=== PATIENT | female | born 1990 | race Caucasian/White ===

== ENCOUNTER 2016-10-17 17:19 | Inpatient (IN) | payer BC ==
[2016-10-17] MEDS ORDERED: ACETAMINOPHEN TAB 500 MG TAB PO STA (19:03)
[2016-10-17] MEDS ORDERED: SODIUM CHLORIDE 0.9% 1,000 ML IV STA (19:03)
[2016-10-17 19:26] LABS: Basophils % (A) 0 %; CH 25.5; CHCM 32.4; Eosinophils # (A) 0.1 k/uL (0-0.7); Eosinophils % (A) 1 %; HCT 36.5 % (34.0-46.0); HDW 2.83; HGB 11.8 gm/dL (11.4-16.0); Luc # (Auto) 0.14; Luc % (Auto) 2; Lymphocytes # (A) 0.8 k/uL (1.0-4.8); Lymphocytes % (A) 9 %; MCH 25.6 pg (25.0-35.0); MCHC 32.4 g/dL (31.0-37.0); MCV 78.8 fL (80.0-100.0); Monocytes # (A) 0.3 k/uL (0-1.0); Monocytes % (A) 3 %; Neutrophils # (A) 7.5 k/uL (1.3-7.7); Neutrophils % (A) 85 %; RBC 4.63 m/uL (3.80-5.40); RDW 14.4 % (11.5-15.5); WBC 8.8 k/uL (3.8-10.6); WBC (Perox) 9.45
--- NOTE | 2016-10-17 19:29 | ED ---
General Adult HPI - General Chief complaint: Fever Stated complaint: FEVER, COUGH, SORETHROAT, WHEEZING, DIZZINESS Time Seen by Provider: 10/17/16 18:44 Source: patient, family, RN notes reviewed Mode of arrival: ambulatory - History of Present Illness Initial comments: Chief complaint and history of presenttwice 6-year-old female here with her . The patient reports to feeling well for several days. Has a fever today of 101.5. Recently was on a Z-Ky for sinus congestion and infection. The patient is complaining of aches and pains. She had nausea vomiting and diarrhea 1 week ago. States today she feels extremely dry. - Related Data Home Medications Medication Instructions Recorded Confirmed Azithromycin [Zithromax Z-pack] See Taper PO DAILY 10/17/16 10/17/16 Blisovi Fe 1.5-30 1 tab PO DAILY 10/17/16 10/17/16 Ibuprofen [Advil] 200 mg PO Q8HR PRN 10/17/16 10/17/16 guaiFENesin/CODEINE PHOSPHATE 5 - 10 ml PO Q6H PRN 10/17/16 10/17/16 [Cheratussin AC Syrup] Allergies Allergy/AdvReac Type Severity Reaction Status Date / Time No Known Allergies Allergy Verified 10/17/16 19:05 Review of Systems ROS Statement: Those systems with pertinent positive or pertinent negative responses have been documented in the HPI. Review of systems. Mild headache no visual acuity changes sore throat from vomiting and coughing. States she's thirsty and feels dry. No nausea vomiting today but she feels nauseated. No back pain. Past medical problems hypertension with . . Family history grandmother had non-Hodgkin's lymphoma. The patient denies any ALLERGIES nonsmoker drink alcohol rarely socially. ROS Other: All systems not noted in ROS Statement are negative. Past Medical History Past Medical History: Hypertension Additional Past Medical History / Comment(s): Gestational hypertension History of Any Multi-Drug Resistant Organisms: None Reported Past Surgical History: Section Past Anesthesia/Blood Transfusion Reactions: No Reported Reaction Past Psychological History: No Psychological Hx Reported Smoking Status: Former smoker Past Alcohol Use History: Occasional Past Drug Use History: None Reported General Exam - General Exam Comments Initial Comments: General: The patient is awake and alert, complaining of some aches pains continued sinus congestion. Think she is dehydrated. Cough. Vital signs temp 101.5 pulse 124 respiratory rate 18 pulse ox 94% room air blood pressure 133/77. Elevated systolic noted 133. Patient is uncomfortable. Mildly obese. And 30 pounds Eye: Pupils are equal, round and reactive to light, extra-ocular movements are intact ; there is normal conjunctiva bilaterally. No signs of icterus. Ears, nose, mouth and throat: There are moist mucous membranes red oropharynx. No exudate. Neck: No anterior cervical lymphadenopathy. No stridor. Able to put chin to chest with minimal discomfort. Cardiovascular: Tachycardic heart rate 124. No murmur, rub or gallop is appreciated. Respiratory: Lungs are clear to auscultation, respirations are non-labored, breath sounds are equal. No wheezes, stridor, rales, or rhonchi. History of cough, not controlled with cough syrup. Gastrointestinal: Soft, non-distended, non-tender abdomen without masses or organomegaly noted. There is no rebound or guarding present. No CVA tenderness. Bowel sounds are unremarkable. Back: There is no tenderness to palpation in the midline. There is no obvious deformity. No rashes noted. Musculoskeletal: Normal ROM, no tenderness, There is no pedal edema. There is no calf tenderness or swelling. Neurological: No neuro deficits Skin: Skin is warm and dry and no rashes or lesions are noted. Course Vital Signs 10/17/16 10/17/16 17:37 19:30 Temperature 101.5 F H Pulse Rate 124 H Respiratory 18 20 Rate Blood Pressure 133/77 O2 Sat by Pulse 94 L Oximetry Medical Decision Making - Medical Decision Making Medical decision making; patient's white count 8.8 hemoglobin 11.8 hematocrit of 36, potassium 3.8 with a BUN of 8 creatinine 0.67 and GFR greater than 60. Glucose 109. AST ALT slightly elevated. Heterophile negative influenza is negative. Chest x-ray was done and reviewed by radiologist his impression is; heart and mediastinum are normal. There is no pneumonic patchiness and consolidation in the left upper lobe. There is also some infiltrate at the left posterior lung base. The right lung is clear. There is no heart failure. There is no hilar masses. Bony thorax is intact. Impression; left upper lobe and to a lesser extent left lower lobe pneumonia. Normal heart. As read by Dr. Cruz The patient be admitted to on-call hospitalist Dr. Putnam. The case is discussed with nurse practitioner Candida rodrigues - Lab Data Result diagrams: 10/17/16 19:17 10/17/16 19:17 Lab Results 10/17/16 10/17/16 10/17/16 Range/Units 19:17 19:17 19:17 WBC 8.8 (3.8-10.6) k/uL RBC 4.63 (3.80-5.40) m/uL Hgb 11.8 (11.4-16.0) gm/dL Hct 36.5 (34.0-46.0) % MCV 78.8 L (80.0-100.0) fL MCH 25.6 (25.0-35.0) pg MCHC 32.4 (31.0-37.0) g/dL RDW 14.4 (11.5-15.5) % Plt Count 191 (150-450) k/uL Neutrophils % 85 % Lymphocytes % 9 % Monocytes % 3 % Eosinophils % 1 % Basophils % 0 % Neutrophils # 7.5 (1.3-7.7) k/uL Lymphocytes # 0.8 L (1.0-4.8) k/uL Monocytes # 0.3 (0-1.0) k/uL Eosinophils # 0.1 (0-0.7) k/uL Basophils # 0.0 (0-0.2) k/uL Sodium 138 (137-145) mmol/L Potassium 3.8 (3.5-5.1) mmol/L Chloride 102 (98-107) mmol/L Carbon Dioxide 23 (22-30) mmol/L Anion Gap 13 mmol/L BUN 8 (7-17) mg/dL Creatinine 0.67 (0.52-1.04) mg/dL Est GFR (MDRD) Af Amer >60 (>60 ml/min/1.73 sqM) Est GFR (MDRD) Non-Af >60 (>60 ml/min/1.73 sqM) Glucose 109 H (74-99) mg/dL Calcium 8.5 (8.4-10.2) mg/dL Total Bilirubin 0.6 (0.2-1.3) mg/dL AST 46 H (14-36) U/L ALT 56 H (9-52) U/L Alkaline Phosphatase 116 (38-126) U/L Total Protein 6.9 (6.3-8.2) g/dL Albumin 3.7 (3.5-5.0) g/dL Heterophile Antibody Negative (Negative) Influenza Type A RNA (Not Detectd) Influenza Type B (PCR) (Not Detectd) 10/17/16 Range/Units 19:17 WBC (3.8-10.6) k/uL RBC (3.80-5.40) m/uL Hgb (11.4-16.0) gm/dL Hct (34.0-46.0) % MCV (80.0-100.0) fL MCH (25.0-35.0) pg MCHC (31.0-37.0) g/dL RDW (11.5-15.5) % Plt Count (150-450) k/uL Neutrophils % % Lymphocytes % % Monocytes % % Eosinophils % % Basophils % % Neutrophils # (1.3-7.7) k/uL Lymphocytes # (1.0-4.8) k/uL Monocytes # (0-1.0) k/uL Eosinophils # (0-0.7) k/uL Basophils # (0-0.2) k/uL Sodium (137-145) mmol/L Potassium (3.5-5.1) mmol/L Chloride (98-107) mmol/L Carbon Dioxide (22-30) mmol/L Anion Gap mmol/L BUN (7-17) mg/dL Creatinine (0.52-1.04) mg/dL Est GFR (MDRD) Af Amer (>60 ml/min/1.73 sqM) Est GFR (MDRD) Non-Af (>60 ml/min/1.73 sqM) Glucose (74-99) mg/dL Calcium (8.4-10.2) mg/dL Total Bilirubin (0.2-1.3) mg/dL AST (14-36) U/L ALT (9-52) U/L Alkaline Phosphatase (38-126) U/L Total Protein (6.3-8.2) g/dL Albumin (3.5-5.0) g/dL Heterophile Antibody (Negative) Influenza Type A RNA Not Detected (Not Detectd) Influenza Type B (PCR) Not Detected (Not Detectd) Disposition Clinical Impression: Community acquired pneumonia Disposition: ADMITTED IP TO THIS HOSP
[2016-10-17 19:38] LABS: ALT 56 U/L (9-52); AST 46 U/L (14-36); Alkaline Phosphatase 116 U/L (38-126); Anion Gap 13 mmol/L; Blood Urea Nitrogen 8 mg/dL (7-17); Calcium 8.5 mg/dL (8.4-10.2); Carbon Dioxide 23 mmol/L (22-30); Chloride 102 mmol/L (98-107); Glucose 109 mg/dL (74-99); Non-African American GFR(MDRD) >60 (>60 ml/min/1.73 sqM); Potassium 3.8 mmol/L (3.5-5.1); Sodium 138 mmol/L (137-145); Total Bilirubin 0.6 mg/dL (0.2-1.3); Total Protein 6.9 g/dL (6.3-8.2)
[2016-10-17] MEDS: SODIUM CHLORIDE 0.9% 1,000 ML IV STA ×2 (19:48→21:46)
--- NOTE | 2016-10-17 20:29 | XR ---
EXAMINATION TYPE: XR chest 2V DATE OF EXAM: 10/17/2016 7:57 PM COMPARISON: NONE HISTORY: Cough and wheezing TECHNIQUE: Frontal and lateral views of the chest are obtained. FINDINGS: Heart and mediastinum are normal. There is pneumonic patchy consolidation in the left uppe r lobe. There is also some infiltrate at the left posterior lung base. The right lung is clear. There is no heart failure. There are no hilar masses. Bony thorax is intact. IMPRESSION: Left upper lobe and to a lesser extent left lower lobe pneumonia. Normal heart.
[2016-10-17] MEDS ORDERED: AZITHROMYCIN 500 MG in SODIUM CHLORIDE 0.9% 250 ML IVPB STA (20:49)
[2016-10-17] MEDS ORDERED: cefTRIAXone 2,000 MG in SODIUM CHLORIDE 0.9% 100 ML IVPB STA (20:49)
[2016-10-17] MEDS ORDERED: NALOXONE 0.4 MG/ML 1 ML VIAL IV PRN (20:53)
[2016-10-17] MEDS ORDERED: IPRATROPIUM-ALBUTEROL 3 ML NEB INHALATION STA (20:56)
[2016-10-17 22:55] VITALS: BMI 48.7
[2016-10-17] MEDS: SODIUM CHLORIDE 0.9% 1,000 ML IV SCH (23:00)
[2016-10-18] MEDS: ACETAMINOPHEN TAB 325 MG TAB PO PRN ×3 (00:02→17:25)
[2016-10-18] MEDS: guaiFENesin-DM 100-10MG/5ML 10 ML CUP PO PRN ×3 (03:55→21:04)
[2016-10-18] MEDS: IPRATROPIUM-ALBUTEROL 3 ML NEB INHALATION PRN ×3 (08:28→23:42)
[2016-10-18] MEDS: PANTOPRAZOLE 40 MG/10 ML VIAL IV SCH (08:52)
[2016-10-18] MEDS: SODIUM CHLORIDE 0.9% 1,000 ML IV SCH ×2 (08:53→21:01)
[2016-10-18] MEDS ORDERED: BLISOVI FE PO SCH (09:00)
[2016-10-18] MEDS: AZITHROMYCIN 500 MG in SODIUM CHLORIDE 0.9% 250 ML IVPB SCH (21:01)
[2016-10-18] MEDS ORDERED: HYDROcodone/APAP 5-325MG 1 EACH TAB PO PRN (21:50)
[2016-10-18] MEDS ORDERED: ALPRAZolam 0.25 MG TAB PO PRN (21:50)
[2016-10-18] MEDS ORDERED: TEMAZEPAM 15 MG CAP PO PRN (22:07)
[2016-10-18] MEDS ORDERED: cefTRIAXone 2,000 MG in SODIUM CHLORIDE 0.9% 100 ML IVPB SCH (22:30)
[2016-10-18] MEDS: HEPARIN SODIUM,PORCINE 5,000 UNIT/ML 1 ML VIAL SQ SCH (23:16)
[2016-10-19] MEDS ORDERED: diphenhydrAMINE 50 MG/ML 1 ML VIAL IVP PRN (01:38)
[2016-10-19] MEDS ORDERED: methylPREDNISolone SOD SUCCI 125 MG/2 ML VIAL IV STA (01:39)
[2016-10-19 03:01] LABS: Appearance,Urine Clear (Clear); Bilirubin,Urine Negative (Negative); Glucose,Urine (UA) Negative (Negative); Ketones,Urine Negative (Negative); Leukocyte Esterase,Urine Negative (Negative); Nitrite,Urine Negative (Negative); PH, Urine 6.5 (5.0-8.0); Protein,Urine Negative (Negative); UA Billing (MACRO vs. MICRO) CHEM; Urobilinogen,Urine <2.0 mg/dL (<2.0)
[2016-10-19 03:24] LABS: Specific Gravity,Urine 1.002 (1.001-1.035)
[2016-10-19 07:30] LABS: Basophils % (A) 0 %; CH 25.2; CHCM 31.8; Eosinophils % (A) 0 %; HCT 32.7 % (34.0-46.0); HDW 2.79; HGB 10.3 gm/dL (11.4-16.0); Hypochromasia Slight; Luc % (Auto) 1; Lymphocytes # (A) 0.5 k/uL (1.0-4.8); Lymphocytes % (A) 8 %; MCHC 31.4 g/dL (31.0-37.0); MCV 79.6 fL (80.0-100.0); Monocytes # (A) 0.1 k/uL (0-1.0); Monocytes % (A) 1 %; Neutrophils # (A) 6.2 k/uL (1.3-7.7); Neutrophils % (A) 90 %; RBC 4.11 m/uL (3.80-5.40); RDW 14.5 % (11.5-15.5); WBC 6.9 k/uL (3.8-10.6); WBC (Perox) 7.16
[2016-10-19 07:41] LABS: ALT 55 U/L (9-52); AST 36 U/L (14-36); Alkaline Phosphatase 95 U/L (38-126); Anion Gap 12 mmol/L; Blood Urea Nitrogen 5 mg/dL (7-17); Calcium 8.8 mg/dL (8.4-10.2); Carbon Dioxide 24 mmol/L (22-30); Chloride 106 mmol/L (98-107); Glucose 129 mg/dL (74-99); Non-African American GFR(MDRD) >60 (>60 ml/min/1.73 sqM); Potassium 4.3 mmol/L (3.5-5.1); Sodium 142 mmol/L (137-145); Total Bilirubin 0.3 mg/dL (0.2-1.3); Total Protein 6.3 g/dL (6.3-8.2)
[2016-10-19] MEDS ORDERED: SYMBICORT 160-4.5 MCG INHALER INHALATION SCH (08:00)
[2016-10-19] MEDS: HEPARIN SODIUM,PORCINE 5,000 UNIT/ML 1 ML VIAL SQ SCH ×2 (08:38→21:13)
[2016-10-19] MEDS: PANTOPRAZOLE 40 MG/10 ML VIAL IV SCH (08:38)
--- NOTE | 2016-10-19 09:04 | HP ---
DATE OF ADMISSION: 10/17/2016 CHIEF COMPLAINT: Fever, cough, sore throat, wheezing and dizziness. HISTORY OF PRESENT ILLNESS: This 26-year-old woman with past medical history of history of hypertension, history of gestational hypertension, history of nicotine dependence, being followed by Dr. Kirk Loomis in the outpatient setting not feeling well over the past one week. Apparently one of the patient's children had HSV infection, which was treated symptomatically. The patient is complaining of cough and sputum for the last one week and patient also had fever up to 101.5. The patient is taking a Z-pack. Because of the lack of improvement, the patient came to [facility] and was admitted to the hospital for further evaluation and treatment. Chest x-ray showed bilateral pneumonia, left more than the right and patient was admitted to the hospital for further evaluation and treatment. There is no history of rigors, fever, chills, no headache, loss of consciousness or seizures at this time. PAST MEDICAL HISTORY: History of hypertension, gestational hypertension. Medications prior to admission include: 1. Advil 200 mg p.o. q.8 p.r.n. 2. Blisovil 1 tablet p.o. daily. 3. Guaifenesin 5 to 10 mg q.6 p.r.n. 4. Zithromax daily. ALLERGIES: None. FAMILY HISTORY: History of hypertension in the family and SOCIAL HISTORY: Previous history of smoking. No history of current smoking. No alcohol intake. REVIEW OF SYSTEMS: ENT: No diminished hearing or vision. CARDIOVASCULAR: No angina or palpitations. RESPIRATORY: As mentioned earlier. GI: No nausea. : No dysuria. CENTRAL NERVOUS SYSTEM: No numbness or weakness. Allergy/immunology: No asthma or hayfever. MUSCULOSKELETAL: As mentioned earlier. HEMATOLOGY/ONCOLOGY: No history of anemia. ENDOCRINE: No history of diabetes. CONSTITUTIONAL: as mentioned earlier. DERMATOLOGY: Negative. RHEUMATOLOGY: Negative . PSYCHIATRY: As mentioned earlier. PHYSICAL EXAMINATION: The patient is alert and oriented times three. Pulse 99, blood pressure 130/64, respiratory rate 16, temperature 98.3, pulse ox 94% on room air. HEENT: Conjunctivae normal. NECK: No jugular venous distention. CARDIOVASCULAR: S1, S2 muffled. RESPIRATORY: Breath sounds diminished in the bases, bilateral scattered rhonchi and crackles. Respiratory wheezing also heard. ABDOMEN: Soft, obese, nontender. No mass palpable. Legs: No edema. No swelling. CENTRAL NERVOUS SYSTEM: Higher functions as mentioned earlier. Moves all four limbs. No focal deficits. LYMPHATICS: No lymph nodes palpable in the neck, axillae or groin. SKIN: No ulcer, rash or bleeding. LABS: At this time shows: WBC 8.8, hemoglobin 11.8. AST 43, ALT is 56, influenza is negative. Triple antibody is negative. ASSESSMENT: 1. Acute bilateral pneumonia, left more than the right, possibly community acquired, rule out viral pneumonia. 2. Increased AST, ALT. 3. Reactive bronchospasm. 4. Increased random blood sugar. 5. Obesity, body mass index 48.7. 6. History of gestational hypertension. 7. Remote history of nicotine dependence. RECOMMENDATIONS AND DISCUSSION: In this 26-year-old woman who presented with multiple complex medical issues, we will monitor the patient closely. Continue the current medications, continue symptomatic treatment. Optimize bronchodilator treatment. Continue Rocephin, Zithromax, obtain cultures. Otherwise, DVT prophylaxis. Incentive spirometry. Continue symptomatic treatment. Guarded prognosis because of multiple complex medical issues. Further recommendations to follow. Please see orders for further details. MTDD
[2016-10-19] MEDS ORDERED: LEVOFLOXACIN 500MG-D5W PMX 500 MG in DEXTROSE/WATER 1 100ML.BAG IVPB SCH (14:00)
--- NOTE | 2016-10-19 14:19 | P.CNPUL ---
History of Present Illness Consult date: 10/19/16 Reason for consult: dyspnea, cough, pneumonia Chief complaint: Cough shortness of breath and wheezing History of present illness: This is a very pleasant 26-year-old female who apparently sees Dr. Farah as her primary doctor. The patient was recently being treated for sinusitis and bronchitis with some Cheratussin and Z-Ky. She got worse and she came into the emergency room to be evaluated. He was seen by one of the ER doctors and diagnoses having left-sided pneumonia. She was admitted to the hospital. She' s been in the hospital since 6. Feeling much better. Her complaints including chest congestion coughing wheezing. Coughing up some phlegm. Slight temperature elevation. No chills. No nausea vomiting or diarrhea. She is feeling much better. Her past medical history is only positive for childbirth. She does take control pills. Doesn't have any history of any lung problems. Nonsmoker. No ALLERGIES. Review of Systems A 12 point review of system is positive for shortness of breath coughing wheezing and phlegm production under the palmar system. In addition she had chest congestion. The rest of the 12 point review of system is unremarkable. Past Medical History Past Medical History: Hypertension Additional Past Medical History / Comment(s): Gestational hypertension History of Any Multi-Drug Resistant Organisms: None Reported Past Surgical History: Section Past Anesthesia/Blood Transfusion Reactions: No Reported Reaction Past Psychological History: No Psychological Hx Reported Smoking Status: Former smoker Past Alcohol Use History: Occasional Past Drug Use History: None Reported - Past Family History Father Family Medical History: Hypertension Additional Family Medical History / Comment(s): grandmother has nonhodgkins lymphoma Medications and Allergies Home Medications Medication Instructions Recorded Confirmed Type Azithromycin [Zithromax Z-pack] See Taper PO DAILY 10/17/16 10/17/16 History Blisovi Fe 1.5-30 1 tab PO DAILY 10/17/16 10/17/16 History Ibuprofen [Advil] 200 mg PO Q8HR PRN 10/17/16 10/17/16 History guaiFENesin/CODEINE PHOSPHATE 5 - 10 ml PO Q6H PRN 10/17/16 10/17/16 History [Cheratussin AC Syrup] Allergies Allergy/AdvReac Type Severity Reaction Status Date / Time ceftriaxone [From Rocephin] Allergy Mild Rash/Hives Verified 10/19/16 12:50 Physical Exam Osteopathic Statement: *. No significant issues noted on an osteopathic structural exam other than those noted in the History and Physical/Consult. Vitals: Vital Signs Temp Pulse Pulse Resp BP Pulse Ox 10/19/16 07:37 97.2 F L 100 16 152/84 95 10/19/16 01:42 98.6 F 10/19/16 01:00 100.1 F H 138 H 18 139/78 93 L 10/19/16 00:05 99.2 F 140 H 16 171/83 92 L 10/18/16 23:51 92 10/18/16 23:44 92 10/18/16 20:00 98.3 F 107 H 16 141/80 94 L 10/18/16 15:00 98.6 F 99 16 134/64 94 L Intake and Output 10/18/16 10/19/16 10/19/16 22:59 06:59 14:59 Intake Total 1300 480 Balance 1300 480 Intake: Intake, IV Titration 800 Amount Sodium Chloride 0.9% 1, 800 000 ml @ 100 mls/hr IV . Q10H [facility] Rx#:[id number] Oral 500 480 Other: Voiding Method Toilet # Voids 1 No acute distress, oriented 3 HEENT examination is grossly unremarkable. Mucous membranes are moist. No oral lesions. Neck is Supple. Full range of motion. No adenopathy. Cardiovascular examination reveals regular rhythm rate. S1-S2 normal. No S3- S4. No murmur. Lung examination reveals expiratory wheezes rhonchi and some crackles throughout the left lung. The right lung is clear. Abdomen soft bowel sounds are heard. Extremities are intact. Results - Laboratory Findings CBC and BMP: 10/19/16 06:58 10/19/16 06:58 Abnormal lab findings: Abnormal Labs 10/17/16 10/19/16 10/19/16 20:58 02:40 06:58 Hgb 10.3 L Hct 32.7 L MCV 79.6 L Lymphocytes # 0.5 L BUN Glucose Plasma Lactic Acid Corby <0.5 L ALT Albumin Urine Opiates Screen Detected H 10/19/16 06:58 Hgb Hct MCV Lymphocytes # BUN 5 L Glucose 129 H Plasma Lactic Acid Corby ALT 55 H Albumin 3.4 L Urine Opiates Screen - Diagnostic Findings Chest x-ray: image reviewed (Chest x-ray shows mostly left-sided infiltrates more so on the left upper lobe and the left lower lobe.) Assessment and Plan (1) Community acquired pneumonia Status: Acute Plan: Plan The patient's medications will be reviewed. She probably could be discharged home later today or tomorrow. She should complete a course of antibiotics. No additional recommendations are made. The patient should get a pneumonia shot either before discharge once discharged. No additional recommendations are made at this time. Time with Patient: Greater than 30
[2016-10-19] MEDS ORDERED: hydrALAZINE HCL 20 MG/ML 1 ML VIAL IVP PRN (18:54)
[2016-10-19] MEDS: amLODIPine 5 MG TAB PO SCH (20:15)
[2016-10-19] MEDS: AZITHROMYCIN 500 MG in SODIUM CHLORIDE 0.9% 250 ML IVPB SCH (21:13)
[2016-10-20] MEDS: cloNIDine HCL 0.1 MG TAB PO PRN ×2 (00:12→16:51)
[2016-10-20] MEDS: IPRATROPIUM-ALBUTEROL 3 ML NEB INHALATION PRN ×4 (05:23→21:57)
[2016-10-20 07:38] LABS: Basophils % (A) 0 %; CH 25.2; CHCM 31.6; Eosinophils # (A) 0.1 k/uL (0-0.7); Eosinophils % (A) 1 %; HDW 2.88; HGB 10.8 gm/dL (11.4-16.0); Hypochromasia Slight; Luc # (Auto) 0.21; Luc % (Auto) 2; Lymphocytes # (A) 1.6 k/uL (1.0-4.8); Lymphocytes % (A) 16 %; MCH 25.4 pg (25.0-35.0); MCHC 31.7 g/dL (31.0-37.0); MCV 79.9 fL (80.0-100.0); Mean Platelet Volume 8.2; Monocytes # (A) 0.4 k/uL (0-1.0); Monocytes % (A) 4 %; Neutrophils # (A) 7.9 k/uL (1.3-7.7); Neutrophils % (A) 77 %; RBC 4.25 m/uL (3.80-5.40); RDW 14.5 % (11.5-15.5); WBC 10.2 k/uL (3.8-10.6); WBC (Perox) 10.88
[2016-10-20 07:47] LABS: ALT 88 U/L (9-52); AST 57 U/L (14-36); Alkaline Phosphatase 93 U/L (38-126); Anion Gap 15 mmol/L; Blood Urea Nitrogen 10 mg/dL (7-17); Calcium 8.9 mg/dL (8.4-10.2); Carbon Dioxide 24 mmol/L (22-30); Chloride 107 mmol/L (98-107); Glucose 119 mg/dL (74-99); Non-African American GFR(MDRD) >60 (>60 ml/min/1.73 sqM); Potassium 3.2 mmol/L (3.5-5.1); Sodium 146 mmol/L (137-145); Total Bilirubin 0.3 mg/dL (0.2-1.3); Total Protein 6.5 g/dL (6.3-8.2)
--- NOTE | 2016-10-20 08:16 | XR ---
EXAMINATION TYPE: XR chest 2V DATE OF EXAM: 10/20/2016 7:03 AM COMPARISON: Prior chest x-ray 17 October 2016 HISTORY: Pneumonia TECHNIQUE: Frontal and lateral views of the chest are obtained. FINDINGS: Airspace disease again seen at the lingula, likely left lower lobe. No pneumothorax or ple ural effusion evident. No significant interval change. IMPRESSION: Findings compatible with patient's history of pneumonia.
[2016-10-20] MEDS: amLODIPine 5 MG TAB PO SCH (08:45)
[2016-10-20] MEDS: HEPARIN SODIUM,PORCINE 5,000 UNIT/ML 1 ML VIAL SQ SCH ×2 (08:45→21:37)
[2016-10-20] MEDS: PANTOPRAZOLE 40 MG/10 ML VIAL IV SCH (08:45)
--- NOTE | 2016-10-20 13:06 | PN ---
DATE OF SERVICE: 08/19/2017 This 26-year-old woman was admitted with acute bilateral pneumonia, left more than the right, possibly community-acquired or viral pneumonia, is being closely monitored. Patient had reaction to Rocephin yesterday, Dr. Vyas is following the patient closely. Community-acquired pneumonia is considered. No chest pain, no palpitation. No fever. On exam, alert and oriented x3. Pulse is 100, blood pressure 153/84, respirations 16, temperature is 97.8, pulse ox 94% on room air. HEENT: Conjunctivae normal. NECK: No jugular venous distension. CARDIOVASCULAR SYSTEM: S1, S2, muffled. RESPIRATORY: Breath sounds diminished at the bases. A few scattered rhonchi, no crackles. Some expiratory wheezing also present. ABDOMEN: Soft, nontender. EXTREMITIES: Legs no edema, no swelling. NERVOUS SYSTEM: No focal deficits. LABS: WBC is 6.9, hemoglobin is 10.3 and albumin is 3.4. Influenza negative. ASSESSMENT: 1. Acute bilateral pneumonia, possibly community-acquired, left more than the right, with possible viral pneumonia. 2. Increased AST, ALT. 3. Reactive bronchospasm. 4. Increased random blood sugar. 5. Hypertension. 6. Obesity with body mass index of 14.7. 7. History of gestational hypertension. 8. Remote history of nicotine dependence. RECOMMENDATION AND DISCUSSION: In this at 26-year-old woman with multiple complex medical issues, will monitor the patient closely. Empiric antibiotics. Otherwise, I would recommend continue with current medication, continue with symptomatic treatment. Otherwise, follow the cultures. Also recommend p.r.n. medications for blood pressure, hypertension, continue to monitor. Further recommendations to follow.
--- NOTE | 2016-10-20 15:17 | P.PN ---
Subjective This is a very pleasant 26-year-old female who apparently sees Dr. Farah as her primary doctor. The patient was recently being treated for sinusitis and bronchitis with some Cheratussin and Z-Ky. She got worse and she came into the emergency room to be evaluated. He was seen by one of the ER doctors and diagnoses having left-sided pneumonia. She was admitted to the hospital on October 17 for further treatment. Since then the patient was placed on a combination of Levaquin and Zithromax. I am seeing this patient in follow-up. Clinically, the patient showed some initial improvement however following that she seems to somewhat remains stable and she hasn't had any major improvement since yesterday. She is still wheezing and is still short of breath. Today's chest x-ray shows a dense consolidation of the left lower lobe typical of a pneumonia. She remains on the same antibiotic coverage which includes Levaquin and Zithromax. No 70 bronchial asthma. He is a former smoker. Objective - Vital Signs Vital signs: Vital Signs Temp 97.4 F L 10/20/16 14:01 Pulse 104 H 10/20/16 14:01 Resp 18 10/20/16 14:01 BP 172/86 10/20/16 14:01 Pulse Ox 96 10/20/16 14:01 Intake & Output 10/19/16 10/20/16 10/20/16 18:59 06:59 18:59 Intake Total 1640 750 580 Balance 1640 750 580 Intake: Intake, IV Titration 800 100 Amount Levofloxacin 500Mg-D5w 100 Pmx 500 mg In Dextrose/ Water 1 100ml.bag @ 100 mls/hr IVPB Q24H [facility] Rx#: [id number] Sodium Chloride 0.9% 1, 800 000 ml @ 100 mls/hr IV . Q10H [facility] Rx#:[id number] Oral 840 750 480 Other: Voiding Method Toilet Toilet # Voids 1 2 - Exam The patient appeared well nourished and normally developed. Vital signs as documented. Head exam is unremarkable. No scleral icterus or corneal arcus noted. Neck is without jugular venous distension, thyromegaly, or carotid bruits. Carotid upstrokes are brisk bilaterally. Sounds are diminished specially in the left lung base along with some left basilar crackles and prolongation of the expiratory phase of breathing.. Cardiac exam reveals the PMI to be normally sized and situated. Rhythm is regular. First and second heart sounds normal. No murmurs, rubs or gallops. Abdominal exam reveals normal bowel sounds, no masses, no organomegaly and no aortic enlargement. Extremities are nonedematous and both femoral and pedal pulses are normal. - Labs CBC & Chem 7: 10/20/16 07:23 10/20/16 07:23 Labs: Abnormal Lab Results - Last 24 Hours (Table) 10/20/16 10/20/16 Range/Units 07:23 07:23 Hgb 10.8 L (11.4-16.0) gm/dL MCV 79.9 L (80.0-100.0) fL Neutrophils # 7.9 H (1.3-7.7) k/uL Sodium 146 H (137-145) mmol/L Potassium 3.2 L (3.5-5.1) mmol/L Glucose 119 H (74-99) mg/dL AST 57 H (14-36) U/L ALT 88 H (9-52) U/L Albumin 3.4 L (3.5-5.0) g/dL Microbiology - Last 24 Hours (Table) 10/19/16 02:40 Urine Culture - Final Urine,Voided 10/17/16 20:58 Blood Culture - Preliminary Blood No Growth after 48 hours 10/18/16 22:30 Gram Stain - Preliminary Sputum Assessment and Plan Plan: Assessment 1 left lower lobe pneumonia, still on a combination of Zithromax and Levaquin. Sputum Gram stain and culture was sent and showing gram-positive cocci in pairs and gram-negative bacilli and the final cultures and sensitivities are still pending for now. Meanwhile, the patient's chest x-ray from today still showing a stable left lower lobe consolidation 2 Hypertension 3 Obesity Plan Keep the same antibiotic coverage. Add IV Solu Medrol 60 every 6 hours. Repeat chest x-ray with PA and lateral views in a.m. We'll consider broadening the antibiotic coverage and even considering a bronchoscopy if no improvement within the next 24-48 hours.
[2016-10-20] MEDS: LEVOFLOXACIN 500 MG TAB PO SCH (16:51)
[2016-10-20] MEDS: methylPREDNISolone SOD SUCCI 125 MG/2 ML VIAL IV SCH (16:52)
--- NOTE | 2016-10-20 20:18 | P.PN ---
Subjective (Date of service 10/20/2016 Progress note being dictated for Dr. Murcia. Interval history: This a 26-year-old female admitted with left lobe pneumonia, and multiple other medical issues. Maintained on antibiotics, nebulized bronchodilators, IV steroids with slow improvement. Continues to have significant wheezing, productive cough with yellow sputum production. Significant shortness of breath with minimal ambulation. Preliminary Sputum culture reporting few gram-positive cocci in pairs and chains, gram-negative bacilli .chest x-ray reporting no pleural effusions, left lower lobe pneumonia .Positive diet intake with no nausea or vomiting. Denies chest pain, palpitations or increasing shortness of breath. Afebrile, T-max 100.1, normal WBC. Objective - Vital Signs Vital signs: Vital Signs Temp 97.4 F L 10/20/16 14:01 Pulse 96 10/20/16 16:58 Resp 18 10/20/16 16:00 BP 163/95 10/20/16 18:20 Pulse Ox 96 10/20/16 14:01 Intake & Output 10/20/16 10/20/16 10/21/16 06:59 18:59 06:59 Intake Total 750 580 Balance 750 580 Intake: Intake, IV Titration 100 Amount Levofloxacin 500Mg-D5w 100 Pmx 500 mg In Dextrose/ Water 1 100ml.bag @ 100 mls/hr IVPB Q24H [facility] Rx#: [id number] Oral 750 480 Other: Voiding Method Toilet Toilet # Voids 2 - Exam PHYSICAL EXAM: VITAL SIGNS: As above GENERAL: [Sitting up in bed, no acute distress] HEENT: [Pupils equal conjunctiva normal.] NECK: [Supple, no JVD] RESPIRATORY EFFORT:[Normal] LUNGS: [Bilateral bases diminished with left lobe expiratory Wheezing,rhonchi scattered throughout] CARDIOVASCULAR[regular S1 and S2, no edema] GI: [Abdomen soft, nontender, positive bowel sounds.] PSYCH: [Alert and oriented -3, mood and affect normal.] NEURO: No focal deficits, moves all 4 extremities, strength and sensation grossly intact - Labs CBC & Chem 7: 10/20/16 07:23 10/20/16 07:23 Labs: Abnormal Lab Results - Last 24 Hours (Table) 10/20/16 10/20/16 Range/Units 07:23 07:23 Hgb 10.8 L (11.4-16.0) gm/dL MCV 79.9 L (80.0-100.0) fL Neutrophils # 7.9 H (1.3-7.7) k/uL Sodium 146 H (137-145) mmol/L Potassium 3.2 L (3.5-5.1) mmol/L Glucose 119 H (74-99) mg/dL AST 57 H (14-36) U/L ALT 88 H (9-52) U/L Albumin 3.4 L (3.5-5.0) g/dL Microbiology - Last 24 Hours (Table) 10/19/16 02:40 Urine Culture - Final Urine,Voided 10/17/16 20:58 Blood Culture - Preliminary Blood No Growth after 48 hours 10/18/16 22:30 Gram Stain - Preliminary Sputum Assessment and Plan Plan: 1. [Acute Left lower lobe pneumonia, suspect community acquired, preliminary sputum culture reporting few gram-positive cocci in pairs, gram-negative bacilli 2. [Reactive bronchospasms]. 3. [Hypertension]. 4. [Morbid obesity, BMI 48.7]. Plan: Continue on current medication regime, nebulized bronchodilators, antibiotics, steroids, monitoring and symptomatic treatment. Slow improvement with potential bronchoscopy being discussed per pulmonary. Aggressive pulmonary toileting. Further recommendations to follow. The impression and plan of care has been dictated as directed. : I performed a H&P examination of this patient and discussed the same with the dictator. I agree with the dictator's note. Any additional findings/opinions/ etc. will be noted.
[2016-10-20] MEDS: AZITHROMYCIN 500 MG TAB PO SCH (21:37)
[2016-10-21] MEDS: methylPREDNISolone SOD SUCCI 125 MG/2 ML VIAL IV SCH ×5 (00:38→23:54)
--- NOTE | 2016-10-21 07:04 | XR ---
EXAMINATION TYPE: XR chest 2V DATE OF EXAM: 10/21/2016 6:54 AM COMPARISON: 10/20/2016 HISTORY: Follow-up pneumonia FINDINGS: Persistent consolidation in the left upper lobe is stable. Right lung clear. No pneumothorax or pleur al effusion. IMPRESSION: 1. Stable left upper lobe consolidation.
[2016-10-21] MEDS: amLODIPine 5 MG TAB PO SCH (07:52)
[2016-10-21] MEDS: PANTOPRAZOLE 40 MG TABLET PO SCH (07:52)
[2016-10-21] MEDS: HEPARIN SODIUM,PORCINE 5,000 UNIT/ML 1 ML VIAL SQ SCH ×2 (07:52→21:14)
[2016-10-21 08:24] LABS: Basophils # (A) 0.1 k/uL (0-0.2); Basophils % (A) 1 %; CH 25.7; CHCM 32.2; Eosinophils % (A) 0 %; HCT 36.3 % (34.0-46.0); HDW 2.74; HGB 11.4 gm/dL (11.4-16.0); Luc # (Auto) 0.17; Luc % (Auto) 2; Lymphocytes # (A) 1.1 k/uL (1.0-4.8); Lymphocytes % (A) 11 %; MCH 25.1 pg (25.0-35.0); MCHC 31.3 g/dL (31.0-37.0); MCV 80.2 fL (80.0-100.0); Mean Platelet Volume 8.7; Monocytes # (A) 0.2 k/uL (0-1.0); Monocytes % (A) 2 %; Neutrophils # (A) 8.8 k/uL (1.3-7.7); Neutrophils % (A) 85 %; RBC 4.53 m/uL (3.80-5.40); RDW 14.5 % (11.5-15.5); WBC 10.4 k/uL (3.8-10.6); WBC (Perox) 10.97
[2016-10-21] MEDS: IPRATROPIUM-ALBUTEROL 3 ML NEB INHALATION PRN ×4 (08:26→20:29)
[2016-10-21 08:38] LABS: ALT 109 U/L (9-52); AST 49 U/L (14-36); Alkaline Phosphatase 98 U/L (38-126); Anion Gap 15 mmol/L; Blood Urea Nitrogen 11 mg/dL (7-17); Calcium 9.6 mg/dL (8.4-10.2); Carbon Dioxide 23 mmol/L (22-30); Chloride 107 mmol/L (98-107); Glucose 117 mg/dL (74-99); Non-African American GFR(MDRD) >60 (>60 ml/min/1.73 sqM); Potassium 4.5 mmol/L (3.5-5.1); Sodium 145 mmol/L (137-145); Total Bilirubin 0.4 mg/dL (0.2-1.3); Total Protein 6.9 g/dL (6.3-8.2)
--- NOTE | 2016-10-21 10:44 | ECHOF ---
Referral Reason:chf MEASUREMENTS -------- HEIGHT: 175.3 cm WEIGHT: 149.7 kg BP: RVIDd: 2.8 cm (< 3.3) IVSd: 1.3 cm (0.6 - 1.1) LVIDd: 4.6 cm (3.9 - 5.3) LVPWd: 1.6 cm (0.6 - 1.1) IVSs: 1.5 cm LVIDs: 3.4 cm LVPWs: 1.6 cm LA Diam: 3.7 cm (2.7 - 3.8) MV EXCURSION: 26.377 mm (> 18.000) MV EF SLOPE: 106 mm/s (70 - 150) EPSS: 0.7 cm MV E Josr: 0.99 m/s MV DecT: 320 ms MV A Josr: 0.75 m/s MV E/A Ratio: 1.31 FINDINGS -------- Sinus rhythm. This was a technically adequate study. Morbid Obesity There is mild concentric left ventricular hypertrophy. Overall left ventricular systolic function is low-normal with, an EF between 50 - 55 %. The right ventricle is normal in size. There is mild aortic valve sclerosis. There is no evidence of aortic regurgitation. Mild mitral annular calcification present. Mild mitral regurgitation is present. There is no evidence of pulmonary hypertension. The right ventricular systolic pressure, as measured by Doppler, is {RVSP}. There is no pulmonic regurgitation present. The aortic root size is normal. There is no pericardial effusion. CONCLUSIONS -------- 1. There is mild concentric left ventricular hypertrophy. 2. Overall left ventricular systolic function is low-normal with, an EF between 50 - 55 %. 3. There is mild aortic valve sclerosis. 4. Mild mitral annular calcification present. 5. Mild mitral regurgitation is present. 6. There is no evidence of pulmonary hypertension. 7. The right ventricular systolic pressure, as measured by Doppler, is {RVSP}. SUPERVISOR BLASTING: Heather Boykin RDCS
--- NOTE | 2016-10-21 11:18 | P.PN ---
Subjective This is a very pleasant 26-year-old female who apparently sees Dr. Farah as her primary doctor. The patient was recently being treated for sinusitis and bronchitis with some Cheratussin and Z-Ky. She got worse and she came into the emergency room to be evaluated. He was seen by one of the ER doctors and diagnoses having left-sided pneumonia. She was admitted to the hospital on October 17 for further treatment. Since then the patient was placed on a combination of Levaquin and Zithromax. I am seeing this patient in follow-up. Clinically, the patient showed some initial improvement however following that she seems to somewhat remains stable and she hasn't had any major improvement since yesterday. She is still wheezing and is still short of breath. Today's chest x-ray shows a dense consolidation of the left lower lobe typical of a pneumonia. She remains on the same antibiotic coverage which includes Levaquin and Zithromax. No bronchial asthma. He is a former smoker. On 10/21/2016 the patient is being seen in follow-up. Clinically she is showing some signs of improvement. Less bronchus spastic less congested in terms of her cough. She is on room air. She is ambulating. Today's chest x- ray shows some limited improvement in the left lower lobe pulmonary infiltration. No fever. No chills. She is on systemic steroids. She is on bronchodilators [id number]. No side effect IV Solu-Medrol at this point. Objective - Vital Signs Vital signs: Vital Signs Temp 96.8 F L 10/21/16 07:00 Pulse 106 H 10/21/16 08:36 Resp 16 10/21/16 07:00 BP 155/94 10/21/16 07:00 Pulse Ox 93 L 10/21/16 08:28 Intake & Output 10/20/16 10/21/16 10/21/16 18:59 06:59 18:59 Intake Total 580 100 480 Balance 580 100 480 Intake: Intake, IV Titration 100 Amount Levofloxacin 500Mg-D5w 100 Pmx 500 mg In Dextrose/ Water 1 100ml.bag @ 100 mls/hr IVPB Q24H [facility] Rx#: [id number] Oral 480 100 480 Other: Voiding Method Toilet Toilet # Voids 1 - Exam The patient appeared well nourished and normally developed. Vital signs as documented. Head exam is unremarkable. No scleral icterus or corneal arcus noted. Neck is without jugular venous distension, thyromegaly, or carotid bruits. Carotid upstrokes are brisk bilaterally. Sounds are diminished specially in the left lung base along with some left basilar crackles and prolongation of the expiratory phase of breathing.. Cardiac exam reveals the PMI to be normally sized and situated. Rhythm is regular. First and second heart sounds normal. No murmurs, rubs or gallops. Abdominal exam reveals normal bowel sounds, no masses, no organomegaly and no aortic enlargement. Extremities are nonedematous and both femoral and pedal pulses are normal. - Labs CBC & Chem 7: 10/21/16 08:01 10/21/16 07:58 Labs: Abnormal Lab Results - Last 24 Hours (Table) 10/21/16 10/21/16 Range/Units 07:58 08:01 Neutrophils # 8.8 H (1.3-7.7) k/uL Creatinine 0.50 L (0.52-1.04) mg/dL Glucose 117 H (74-99) mg/dL AST 49 H (14-36) U/L ALT 109 H (9-52) U/L Microbiology - Last 24 Hours (Table) 10/18/16 22:30 Gram Stain - Final Sputum Sputum Culture - Final 10/17/16 20:58 Blood Culture - Preliminary Blood No Growth after 72 hours 10/19/16 02:40 Urine Culture - Final Urine,Voided Assessment and Plan Plan: Assessment 1 left lower lobe pneumonia, still on a combination of Zithromax and Levaquin. Sputum Gram stain and culture was sent and showing gram-positive cocci in pairs and gram-negative bacilli and the final cultures and sensitivities are still pending for now. Meanwhile, the patient's chest x-ray from today still showing a stable left lower lobe consolidation On 10/21/2016 the patient is improving clinically. Less bronchospastic and wheezy and there is some limited improvement of the left lower lobe pneumonia. 2 Hypertension 3 Obesity Plan Keep the same antibiotic coverage. Continue the Solu-Medrol. Continue the bronchodilators. Repeat chest x-ray in a.m. We'll likely discharge this patient home in a.m. on a course of Levaquin and a prednisone burst taper if her condition remains stable and there is ongoing improvement in the left lung pneumonia.
[2016-10-21] MEDS: LEVOFLOXACIN 500 MG TAB PO SCH (11:42)
[2016-10-21] MEDS: AZITHROMYCIN 500 MG TAB PO SCH (21:14)
[2016-10-22] MEDS: methylPREDNISolone SOD SUCCI 125 MG/2 ML VIAL IV SCH ×2 (05:09→11:02)
[2016-10-22] MEDS: IPRATROPIUM-ALBUTEROL 3 ML NEB INHALATION PRN ×2 (05:23→09:52)
[2016-10-22 07:11] LABS: Basophils # (A) 0.1 k/uL (0-0.2); Basophils % (A) 0 %; CH 25.5; CHCM 31.9; Eosinophils % (A) 0 %; HCT 36.9 % (34.0-46.0); HDW 2.72; HGB 11.7 gm/dL (11.4-16.0); Hypochromasia Slight; Luc # (Auto) 0.26; Luc % (Auto) 2; Lymphocytes # (A) 1.3 k/uL (1.0-4.8); Lymphocytes % (A) 8 %; MCH 25.3 pg (25.0-35.0); MCHC 31.6 g/dL (31.0-37.0); MCV 80.1 fL (80.0-100.0); Mean Platelet Volume 8.4; Monocytes # (A) 0.4 k/uL (0-1.0); Monocytes % (A) 2 %; Neutrophils # (A) 14.8 k/uL (1.3-7.7); Neutrophils % (A) 88 %; RDW 14.7 % (11.5-15.5); WBC 16.9 k/uL (3.8-10.6); WBC (Perox) 17.15
[2016-10-22 07:28] LABS: ALT 107 U/L (9-52); AST 34 U/L (14-36); Alkaline Phosphatase 100 U/L (38-126); Anion Gap 16 mmol/L; Blood Urea Nitrogen 13 mg/dL (7-17); Calcium 9.6 mg/dL (8.4-10.2); Carbon Dioxide 23 mmol/L (22-30); Chloride 106 mmol/L (98-107); Glucose 133 mg/dL (74-99); Non-African American GFR(MDRD) >60 (>60 ml/min/1.73 sqM); Potassium 4.2 mmol/L (3.5-5.1); Sodium 145 mmol/L (137-145); Total Bilirubin 0.5 mg/dL (0.2-1.3)
[2016-10-22 07:51] VITALS: BP 148/88; TEMP 97.8
--- NOTE | 2016-10-22 07:53 | XR ---
EXAMINATION TYPE: XR chest 2V DATE OF EXAM: 10/22/2016 7:03 AM COMPARISON: 10/21/2016 HISTORY: Pneumonia FINDINGS: Subsegmental infiltrate in the lingular segment left upper lobe and left lower lobe. No pleural effus ion. No pneumothorax. Heart size stable. IMPRESSION: 1. Left-sided infiltrates are stable.
[2016-10-22] MEDS: HEPARIN SODIUM,PORCINE 5,000 UNIT/ML 1 ML VIAL SQ SCH (08:39)
[2016-10-22] MEDS: amLODIPine 5 MG TAB PO SCH (08:39)
[2016-10-22] MEDS: PANTOPRAZOLE 40 MG TABLET PO SCH (08:39)
[2016-10-22 09:02] VITALS: RESP 15
--- NOTE | 2016-10-22 12:15 | P.PN ---
Subjective This is a very pleasant 26-year-old female who apparently sees Dr. Farah as her primary doctor. The patient was recently being treated for sinusitis and bronchitis with some Cheratussin and Z-Ky. She got worse and she came into the emergency room to be evaluated. He was seen by one of the ER doctors and diagnoses having left-sided pneumonia. She was admitted to the hospital on October 17 for further treatment. Since then the patient was placed on a combination of Levaquin and Zithromax. I am seeing this patient in follow-up. Clinically, the patient showed some initial improvement however following that she seems to somewhat remains stable and she hasn't had any major improvement since yesterday. She is still wheezing and is still short of breath. Today's chest x-ray shows a dense consolidation of the left lower lobe typical of a pneumonia. She remains on the same antibiotic coverage which includes Levaquin and Zithromax. No bronchial asthma. He is a former smoker. On 10/21/2016 the patient is being seen in follow-up. Clinically she is showing some signs of improvement. Less bronchus spastic less congested in terms of her cough. She is on room air. She is ambulating. Today's chest x- ray shows some limited improvement in the left lower lobe pulmonary infiltration. No fever. No chills. She is on systemic steroids. She is on bronchodilators [id number]. No side effect IV Solu-Medrol at this point. On 10/22/2016 the patient feels good. She is being seen in follow-up. The chest x-ray showing further improvement in the left lower lobe pulmonary infiltrate. The patient is on a prednisone burst taper. She is afebrile. No hemoptysis. No chest pain. I think she'll be stable for discharge from the pulmonary standpoint. Objective - Vital Signs Vital signs: Vital Signs Temp 97.8 F 10/22/16 07:00 Pulse 100 10/22/16 09:52 Resp 15 10/22/16 08:00 BP 148/88 10/22/16 07:00 Pulse Ox 94 L 10/22/16 07:00 Intake & Output 10/21/16 10/22/16 10/22/16 18:59 06:59 18:59 Intake Total 1200 200 Balance 1200 200 Intake: Oral 1200 200 Other: Voiding Method Toilet Toilet # Voids 3 2 - Exam The patient appeared well nourished and normally developed. Vital signs as documented. Head exam is unremarkable. No scleral icterus or corneal arcus noted. Neck is without jugular venous distension, thyromegaly, or carotid bruits. Carotid upstrokes are brisk bilaterally. Sounds are diminished specially in the left lung base along with some left basilar crackles and prolongation of the expiratory phase of breathing.. Cardiac exam reveals the PMI to be normally sized and situated. Rhythm is regular. First and second heart sounds normal. No murmurs, rubs or gallops. Abdominal exam reveals normal bowel sounds, no masses, no organomegaly and no aortic enlargement. Extremities are nonedematous and both femoral and pedal pulses are normal. - Labs CBC & Chem 7: 10/22/16 06:45 10/22/16 06:45 Labs: Abnormal Lab Results - Last 24 Hours (Table) 10/22/16 10/22/16 Range/Units 06:45 06:45 WBC 16.9 H (3.8-10.6) k/uL Neutrophils # 14.8 H (1.3-7.7) k/uL Glucose 133 H (74-99) mg/dL ALT 107 H (9-52) U/L Microbiology - Last 24 Hours (Table) 10/17/16 20:58 Blood Culture - Preliminary Blood No Growth after 96 hours 10/18/16 22:30 Gram Stain - Final Sputum Sputum Culture - Final Assessment and Plan Plan: Assessment 1 left lower lobe pneumonia, still on a combination of Zithromax and Levaquin. Sputum Gram stain and culture was sent and showing gram-positive cocci in pairs and gram-negative bacilli and the final cultures and sensitivities are still pending for now. Meanwhile, the patient's chest x-ray from today still showing a stable left lower lobe consolidation On 10/21/2016 the patient is improving clinically. Less bronchospastic and wheezy and there is some limited improvement of the left lower lobe pneumonia. On 10/22/2016, the patient's chest x-ray shows improvement in the left lower lobe pulmonary infiltrate. I think she is good for discharge from pulmonary standpoint. 2 Hypertension 3 Obesity Plan We'll discharge this patient home on a course of Levaquin 750 to complete a 7 day course. Prednisone burst taper. Follow-up in office in 2-3 weeks time for a follow-up chest x-ray.
[2016-10-22 12:29] VITALS: PULSE 104
--- NOTE | 2016-10-22 16:40 | P.PN ---
Subjective (Date of service 10/21/2016 Progress note being dictated for Dr. Murcia. Interval history: This a 26-year-old female admitted with left lobe pneumonia, and multiple other medical issues. Maintained on antibiotics, nebulized bronchodilators, IV steroids with continued improvement. Chest x-ray reporting stable left upper lobe consolidation. Wheezing and cough improving. Less congestion. Ambulating with less shortness of breath upon exertion. Denies chest pain, palpitations or increasing shortness of breath. Afebrile, normal WBC. Objective - Vital Signs Vital signs: Vital Signs Temp 97.9 F 10/21/16 15:54 Pulse 96 10/21/16 16:51 Resp 16 10/21/16 15:54 BP 145/78 10/21/16 15:54 Pulse Ox 93 L 10/21/16 15:54 Intake & Output 10/20/16 10/21/16 10/21/16 18:59 06:59 18:59 Intake Total 580 100 960 Balance 580 100 960 Intake: Intake, IV Titration 100 Amount Levofloxacin 500Mg-D5w 100 Pmx 500 mg In Dextrose/ Water 1 100ml.bag @ 100 mls/hr IVPB Q24H [facility] Rx#: [id number] Oral 480 100 960 Other: Voiding Method Toilet Toilet # Voids 1 3 - Exam PHYSICAL EXAM: VITAL SIGNS: As above GENERAL: [Sitting up in bed, no acute distress] HEENT: [Pupils equal conjunctiva normal.] NECK: [Supple, no JVD] RESPIRATORY EFFORT:[Normal] LUNGS: [Bilateral bases diminished with left lobe expiratory Wheezing improving , fine Left basilar crackles CARDIOVASCULAR[regular S1 and S2, no edema] GI: [Abdomen soft, nontender, positive bowel sounds.] PSYCH: [Alert and oriented -3, mood and affect normal.] NEURO: No focal deficits, moves all 4 extremities, strength and sensation grossly intact - Labs CBC & Chem 7: 10/22/16 06:45 10/22/16 06:45 Labs: Abnormal Lab Results - Last 24 Hours (Table) 10/21/16 10/21/16 Range/Units 07:58 08:01 Neutrophils # 8.8 H (1.3-7.7) k/uL Creatinine 0.50 L (0.52-1.04) mg/dL Glucose 117 H (74-99) mg/dL AST 49 H (14-36) U/L ALT 109 H (9-52) U/L Microbiology - Last 24 Hours (Table) 10/18/16 22:30 Gram Stain - Final Sputum Sputum Culture - Final 10/17/16 20:58 Blood Culture - Preliminary Blood No Growth after 72 hours 10/19/16 02:40 Urine Culture - Final Urine,Voided Assessment and Plan Plan: 1. [Acute Left lower lobe pneumonia, suspect community acquired, sputum culture reporting few gram-positive cocci in pairs, gram-negative bacilli 2. [Reactive bronchospasms]. 3. [Hypertension]. 4. [Morbid obesity, BMI 48.7]. Plan: Continue on current medication regime, nebulized bronchodilators, antibiotics, steroids, monitoring and symptomatic treatment. Aggressive pulmonary toileting. Increase ambulation as tolerated. Repeat chest x-ray in a.m. Discharge planning in progress for tomorrow pending pulmonary clearance. Further recommendations to follow. The impression and plan of care has been dictated as directed. : I performed a H&P examination of this patient and discussed the same with the dictator. I agree with the dictator's note. Any additional findings/opinions/ etc. will be noted.
--- NOTE | 2016-10-22 16:45 | P.DS ---
Providers Date of admission: 10/17/16 20:53 Expected date of discharge: 10/22/16 Attending physician: MD Dr. Divina Nava. Consults: 10/18/16 14:44 Consult Physician Routine Consulting Provider: Demar Vyas Consult Reason/Comments: pneumonia Do you want consulting provider notified?: Yes Dr. Muñiz, Pulmonary Primary care physician: Kirk Loomis [place] [facility] Course: Final diagnoses: . [Acute Left lower lobe pneumonia, suspect community acquired, sputum culture reporting few gram-positive cocci in pairs, gram-negative bacilli 2. [Reactive bronchospasms, improved]. 3. [Hypertension]. 4. [Morbid obesity, BMI 48.7]. Hospital course:This a 26-year-old female admitted with left lobe pneumonia, and multiple other medical issues. Maintained on antibiotics, nebulized bronchodilators, IV steroids with significant improvement. Follow-up Chest x- rays reporting stable left upper lobe infiltrates. Cleared by pulmonary for discharge. Patient is being discharged home in a stable condition with guarded prognosis. Patient Condition at Discharge: Stable Plan - Discharge Summary New Discharge Prescriptions: Ipratropium/Albuterol Sulfate [Combivent Respimat Inhaler] 1 puff INHALATION QID #1 inhaler Levofloxacin [Levaquin] 750 mg PO DAILY #5 tab predniSONE 10 mg PO DIRECTED #30 tab Discharge Medication List [place] Fe 1.5-30 1 tab PO DAILY 10/17/16 [History] Ipratropium/Albuterol Sulfate [Combivent Respimat Inhaler] 1 puff INHALATION QID #1 inhaler 10/22/16 [Rx] Levofloxacin [Levaquin] 750 mg PO DAILY #5 tab 10/22/16 [Rx] guaiFENesin-DM 100-10MG/5ML [Robitussin DM] 5 ml PO Q6H PRN #0 cup 10/22/16 [Rx] predniSONE 10 mg PO DIRECTED #30 tab 10/22/16 [Rx] Follow up Appointment(s)/Referral(s): Kirk Loomis MD [Primary Care Provider] - 10/28/16 11:00 am Ena Muñiz MD [STAFF PHYSICIAN] - 11/19/16 1:30 pm Ambulatory/Diagnostic Orders: Complete Blood Count w/diff [LAB.AMB] Time Frame: 3 Days, Location: Determined By Patient Activity/Diet/Wound Care/Special Instructions: Off work until you follow up with PCP Discharge Disposition: HOME SELF-CARE
== END 2016-10-22 14:50 | disposition home or self-care (01) | DRG 194 ==
LOC: EC 17:19 → 3SUR 20:53
PROVIDERS: ADMIT Internal Medicine; ATTEND Internal Medicine
DX: J18.9 Pneumonia, unspecified organism (principal); E66.01 Morbid (severe) obesity due to excess calories; T36.1X5A Adverse effect of cephalosporins and other beta-lactam antibiotics, initial encounter; E86.0 Dehydration; J98.01 Acute bronchospasm; Z87.891 Personal history of nicotine dependence; Z68.42 Body mass index [BMI] 45.0-49.9, adult; Z82.49 Family history of ischemic heart disease and other diseases of the circulatory system
CPT/HCPCS: 36415; 71020; 80053; 80306; 81003; 83605; 83880; 85025; 86308; 87040; 87070; 87086; 87205; 87502; 93306; 94640; 94760; 96361; 96365; 99284

== ENCOUNTER 2017-09-04 01:39 | Emergency (ER) | payer BC ==
[2017-09-04] MEDS ORDERED: SODIUM CHLORIDE 0.9% 1,000 ML IV ONE (02:07)
[2017-09-04] MEDS ORDERED: METOCLOPRAMIDE 5 MG/ML 2 ML VIAL IVP STA (02:07)
[2017-09-04] MEDS ORDERED: diphenhydrAMINE 50 MG/ML 1 ML VIAL IVP STA (02:07)
[2017-09-04] MEDS ORDERED: ACETAMINOPHEN TAB 500 MG TAB PO STA (02:07)
[2017-09-04] MEDS ORDERED: SODIUM CHLORIDE 0.9% 1,000 ML IV SCH (02:15)
[2017-09-04 02:49] LABS: Anisocytosis Slight; Basophils % (A) 0 %; CH 27.1; CHCM 33.2; Eosinophils # (A) 0.1 k/uL (0-0.7); Eosinophils % (A) 1 %; HCT 35.4 % (34.0-46.0); HDW 2.96; HGB 11.3 gm/dL (11.4-16.0); Luc % (Auto) 1; Lymphocytes # (A) 1.2 k/uL (1.0-4.8); Lymphocytes % (A) 12 %; MCH 26.2 pg (25.0-35.0); MCHC 31.9 g/dL (31.0-37.0); MCV 82.1 fL (80.0-100.0); Mean Platelet Volume 8.6; Monocytes # (A) 0.4 k/uL (0-1.0); Monocytes % (A) 5 %; Neutrophils # (A) 7.9 k/uL (1.3-7.7); Neutrophils % (A) 82 %; RBC 4.31 m/uL (3.80-5.40); WBC 9.6 k/uL (3.8-10.6); WBC (Perox) 10.34
[2017-09-04 02:51] LABS: Appearance,Urine Clear (Clear); Bacteria,Urine Occasional /hpf; Bilirubin,Urine Negative (Negative); Glucose,Urine (UA) Negative (Negative); Ketones,Urine 1+ (Negative); Leukocyte Esterase,Urine Small (Negative); Nitrite,Urine Negative (Negative); PH, Urine 6.5 (5.0-8.0); Particle Count 3376; Protein,Urine Negative (Negative); RBC,Urine <1 /hpf (0-5); Specific Gravity,Urine 1.007 (1.001-1.035); Squamous Epithelial Cell,Urine 3 /hpf (0-4); UA Billing (MACRO vs. MICRO) MICRO; Urobilinogen,Urine <2.0 mg/dL (<2.0); WBC,Urine 2 /hpf (0-5)
[2017-09-04 02:57] LABS: ALT 29 U/L (9-52); AST 16 U/L (14-36); Alkaline Phosphatase 74 U/L (38-126); Amylase 66 U/L (30-110); Anion Gap 9 mmol/L; Blood Urea Nitrogen 4 mg/dL (7-17); Calcium 8.5 mg/dL (8.4-10.2); Carbon Dioxide 20 mmol/L (22-30); Chloride 107 mmol/L (98-107); Glucose 95 mg/dL (74-99); Non-African American GFR(MDRD) >60 (>60 ml/min/1.73 sqM); Potassium 3.4 mmol/L (3.5-5.1); Sodium 136 mmol/L (137-145); Total Bilirubin 0.3 mg/dL (0.2-1.3); Total Protein 5.7 g/dL (6.3-8.2)
--- NOTE | 2017-09-04 03:05 | ED ---
Abdominal Pain HPI - General Chief Complaint: Abdominal Pain Stated Complaint: Abdominal Pain-Cleared from Mother Baby 30wks Preg Time Seen by Provider: 09/04/17 01:55 Source: patient, RN notes reviewed, old records reviewed Mode of arrival: ambulatory Limitations: no limitations - History of Present Illness Initial Comments: 27-year-old female presents emergency Department chief complaint of bilateral abdominal pain for the past 2 days. Patient reports that she was having some vomiting episodes and diarrhea on Thursday. She reports that the symptoms continued to occur. Patient denies any recent fever or chills. She is currently 30 weeks . Was sent up to the mother-baby unit, and was cleared. Patient states that she has had dark urine over the past few days. Denies any back pain. She reports that the abdominal pain only occurs when she sits up and forward and standing. Denies any other pain. - Related Data Home Medications Medication Instructions Recorded Confirmed Aspirin 81 mg PO DAILY 09/04/17 09/04/17 Pnv,Calcium 72/Iron/Folic Acid 1 tab PO DAILY 09/04/17 09/04/17 [ Plus Tablet] Previous Rx's Medication Instructions Recorded Metoclopramide [Reglan] 5 mg PO ACHS #10 tab 09/04/17 Allergies Allergy/AdvReac Type Severity Reaction Status Date / Time ceftriaxone [From Rocephin] Allergy Mild Rash/Hives Verified 09/04/17 00:35 Review of Systems ROS Statement: Those systems with pertinent positive or pertinent negative responses have been documented in the HPI. ROS Other: All systems not noted in ROS Statement are negative. Past Medical History Past Medical History: Hypertension Additional Past Medical History / Comment(s): Gestational hypertension History of Any Multi-Drug Resistant Organisms: None Reported Past Surgical History: Section Past Anesthesia/Blood Transfusion Reactions: No Reported Reaction Past Psychological History: No Psychological Hx Reported Smoking Status: Former smoker Past Alcohol Use History: Occasional Past Drug Use History: None Reported - Past Family History Father Family Medical History: Hypertension Additional Family Medical History / Comment(s): grandmother has nonhodgkins lymphoma General Exam - General Exam Comments Initial Comments: 27-year-old female. No distress. Patient is 30 weeks . Limitations: no limitations General appearance: alert, in no apparent distress Head exam: Present: atraumatic, normocephalic, normal inspection Eye exam: Present: normal appearance, PERRL, EOMI. Absent: scleral icterus, conjunctival injection, periorbital swelling ENT exam: Present: normal exam, mucous membranes moist Neck exam: Present: normal inspection. Absent: tenderness, meningismus, lymphadenopathy Respiratory exam: Present: normal lung sounds bilaterally. Absent: respiratory distress, wheezes, rales, rhonchi, stridor Cardiovascular Exam: Present: regular rate, normal rhythm, normal heart sounds. Absent: systolic murmur, diastolic murmur, rubs, gallop, clicks GI/Abdominal exam: Present: soft, normal bowel sounds. Absent: distended, tenderness, guarding, rebound, rigid Extremities exam: Present: normal inspection, full ROM, normal capillary refill. Absent: tenderness, pedal edema, joint swelling, calf tenderness Back exam: Present: normal inspection Neurological exam: Present: alert, oriented X3, CN II-XII intact Psychiatric exam: Present: normal affect, normal mood Skin exam: Present: warm, dry, intact, normal color. Absent: rash Course Vital Signs 09/04/17 09/04/17 09/04/17 01:44 03:08 04:09 Temperature 96.9 F L 97.9 F Pulse Rate 97 100 97 Respiratory 18 18 16 Rate Blood Pressure 142/69 140/72 149/71 O2 Sat by Pulse 96 99 100 Oximetry Medical Decision Making - Medical Decision Making 27-year-old female that is 30 weeks presents with my Kirk Dom will be whenever she standing. I reviewed with them on the limits. Discussed that is likely she's been dehydrated. She has had multiple episodes of vomiting earlier in the week as well as some diarrhea. I said her pain seems to be musculoskeletal relatedAs it is worse with movement. Positive [place] side. Again this could be related to the possible round ligament pain. Discussed that she needs to follow up with her primary care provider and OB/ [facility].She was sent upstairs and cleared by mother baby and then was brought out to emergency. - Lab Data Result diagrams: 09/04/17 02:36 09/04/17 02:36 Lab Results 09/04/17 09/04/17 09/04/17 Range/Units 02:36 02:36 02:36 WBC 9.6 (3.8-10.6) k/uL RBC 4.31 (3.80-5.40) m/uL Hgb 11.3 L (11.4-16.0) gm/dL Hct 35.4 (34.0-46.0) % MCV 82.1 (80.0-100.0) fL MCH 26.2 (25.0-35.0) pg MCHC 31.9 (31.0-37.0) g/dL RDW 17.0 H (11.5-15.5) % Plt Count 127 L (150-450) k/uL Neutrophils % 82 % Lymphocytes % 12 % Monocytes % 5 % Eosinophils % 1 % Basophils % 0 % Neutrophils # 7.9 H (1.3-7.7) k/uL Lymphocytes # 1.2 (1.0-4.8) k/uL Monocytes # 0.4 (0-1.0) k/uL Eosinophils # 0.1 (0-0.7) k/uL Basophils # 0.0 (0-0.2) k/uL Anisocytosis Slight Sodium 136 L (137-145) mmol/L Potassium 3.4 L (3.5-5.1) mmol/L Chloride 107 (98-107) mmol/L Carbon Dioxide 20 L (22-30) mmol/L Anion Gap 9 mmol/L BUN 4 L (7-17) mg/dL Creatinine 0.40 L (0.52-1.04) mg/dL Est GFR (MDRD) Af Amer >60 (>60 ml/min/1.73 sqM) Est GFR (MDRD) Non-Af >60 (>60 ml/min/1.73 sqM) Glucose 95 (74-99) mg/dL Calcium 8.5 (8.4-10.2) mg/dL Total Bilirubin 0.3 (0.2-1.3) mg/dL AST 16 (14-36) U/L ALT 29 (9-52) U/L Alkaline Phosphatase 74 (38-126) U/L Total Protein 5.7 L (6.3-8.2) g/dL Albumin 3.1 L (3.5-5.0) g/dL Amylase 66 (30-110) U/L Lipase 75 (23-300) U/L Urine Color Yellow Urine Appearance Clear (Clear) Urine pH 6.5 (5.0-8.0) Ur Specific [place] 1.007 (1.001-1.035) Urine Protein Negative (Negative) Urine Glucose (UA) Negative (Negative) Urine Ketones 1+ H (Negative) Urine Blood Negative (Negative) Urine Nitrite Negative (Negative) Urine Bilirubin Negative (Negative) Urine Urobilinogen <2.0 (<2.0) mg/dL Ur Leukocyte Esterase Small H (Negative) Urine RBC <1 (0-5) /hpf Urine WBC 2 (0-5) /hpf Ur Squamous Epith Cells 3 (0-4) /hpf Urine Bacteria Occasional H (None) /hpf Disposition Clinical Impression: Abdominal pain affecting , Nausea/vomiting in Disposition: HOME SELF-CARE Condition: Good Instructions: Abdominal Pain in (ED) Additional Instructions: Patient advised follow-up with primary care provider as well as 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 Remain hydrated. Take nausea medicine as prescribed. Return to emergency department if any alarming signs or symptoms occur. Prescriptions: Metoclopramide [Reglan] 5 mg PO ACHS #10 tab Referrals: Kirk Loomis MD [Primary Care Provider] - 1-2 days Time of Disposition: 03:51
[2017-09-04 04:10] VITALS: BP 149/71; PULSE 97; RESP 16; TEMP 97.9
== END 2017-09-04 04:09 | disposition home or self-care (01) ==
LOC: EC 01:39
DX: O99.89 Other specified diseases and conditions complicating pregnancy, childbirth and the puerperium (principal); R10.9 Unspecified abdominal pain; O21.2 Late vomiting of pregnancy; Z87.891 Personal history of nicotine dependence; Z88.1 Allergy status to other antibiotic agents; Z98.890 Other specified postprocedural states; Z3A.30 30 weeks gestation of pregnancy; Z79.82 Long term (current) use of aspirin; Z79.899 Other long term (current) drug therapy
CPT/HCPCS: 36415; 80053; 82150; 83690; 85025; 81001; 99284; 96374; 96375; 96361 ×2; J1200; J2765; 59025; 99213

== ENCOUNTER 2017-11-04 10:05 | Inpatient (IN) | payer BC ==
[2017-11-02 17:07] VITALS: BMI 53.4
[2017-11-04] MEDS ORDERED: LACTATED RINGERS 1,000 ML IV ONE (10:06)
[2017-11-04] MEDS ORDERED: CITRIC ACID-SODIUM CITRATE 15 ML CUP PO ONE (10:06)
[2017-11-04] MEDS ORDERED: LACTATED RINGERS 1,000 ML IV SCH (10:15)
[2017-11-04 10:46] LABS: Anisocytosis Slight; Basophils % (A) 0 %; Eosinophils # (A) 0.1 k/uL (0-0.7); Eosinophils % (A) 1 %; HCT 38.2 % (34.0-46.0); HGB 12.7 gm/dL (11.4-16.0); Lymphocytes # (A) 3.6 k/uL (1.0-4.8); Lymphocytes % (A) 34 %; MCH 28.1 pg (25.0-35.0); MCHC 33.1 g/dL (31.0-37.0); MCV 84.7 fL (80.0-100.0); Mean Platelet Volume 8.9; Monocytes # (A) 0.4 k/uL (0-1.0); Monocytes % (A) 4 %; Neutrophils # (A) 6.1 k/uL (1.3-7.7); Neutrophils % (A) 59 %; Platelet Count 147 k/uL (150-450); RBC 4.51 m/uL (3.80-5.40); RDW 17.9 % (11.5-15.5); WBC 10.5 k/uL (3.8-10.6)
[2017-11-04] MEDS ORDERED: CLINDAMYCIN 900 MG in DEXTROSE 5% IN WATER 50 ML IVPB STA ×2 (10:59)
[2017-11-04] MEDS ORDERED: MORPHINE SULFATE (PF) 0.3 MG/0.3 ML SYR ONE (11:55)
[2017-11-04] MEDS ORDERED: ONDANSETRON 4 MG/2 ML VIAL ONE (11:55)
[2017-11-04] MEDS ORDERED: fentaNYL (PF) 50 MCG/ML 2 ML AMP ONE (11:55)
[2017-11-04] MEDS ORDERED: OXYTOCIN 10 UNIT/ML 1 ML VIAL ONE (11:55)
[2017-11-04] MEDS ORDERED: KETOROLAC 30 MG/ML 1 ML VIAL ONE (11:55)
--- NOTE | 2017-11-04 12:03 | P.HPOB ---
History of Present Illness H&P Date: 11/04/17 Chief Complaint: IUP at 39-0/7 weeks, history of 2 this is a 27-year-old 2 para 0102 with history of twins. She presents for elective repeat section. She denies contractions at this time. But notes good movement. Blood type is O+, rubella immune, hepatitis B surface antigen negative, group beta strep was negative, HIV negative, RPR nonreactive. Review of Systems Constitutional: Denies fatigue, Denies fever Respiratory: Denies cough, Denies dyspnea Gastrointestinal: Denies constipation, Denies diarrhea Genitourinary: Reports Past Medical History Past Medical History: Hypertension, Pneumonia Additional Past Medical History / Comment(s): Gestational hypertension History of Any Multi-Drug Resistant Organisms: None Reported Past Surgical History: Section Additional Past Surgical History / Comment(s): wisdom teeth Past Anesthesia/Blood Transfusion Reactions: No Reported Reaction, Motion Sickness Additional Past Anesthesia/Blood Transfusion Reaction / Comment(s): no hx blood transfusion Past Psychological History: No Psychological Hx Reported Smoking Status: Former smoker Past Alcohol Use History: None Reported Additional Past Alcohol Use History / Comment(s): quit smoking on and off for approx 10yrs <1ppd Past Drug Use History: None Reported - Past Family History Father Family Medical History: Hypertension Additional Family Medical History / Comment(s): grandmother has nonhodgkins lymphoma Mother Additional Family Medical History / Comment(s): maternal grandmother nonhodgkin' s lymphoma Medications and Allergies Home Medications Medication Instructions Recorded Confirmed Type Pnv,Calcium 72/Iron/Folic Acid 1 tab PO DAILY 09/04/17 11/02/17 History [ Plus Tablet] Allergies Allergy/AdvReac Type Severity Reaction Status Date / Time ceftriaxone [From Rocephin] Allergy Mild flushing Verified 11/02/17 17:00 Exam Osteopathic Statement: *. No significant issues noted on an osteopathic structural exam other than those noted in the History and Physical/Consult. - Vital Signs Vital signs: Vital Signs Temp Pulse Resp BP Pulse Ox 11/04/17 10:35 97.9 F 91 18 162/91 100 Intake and Output 11/03/17 11/04/17 11/04/17 22:59 06:59 14:59 Other: Weight 164.2 kg Patient Weight 11/05/17 06:59 Weight 164.2 kg - OBG Physical Exam Abdomen: gravid Uterus: enlarged Results Result Diagrams: 11/04/17 10:30 Abnormal Lab Results - Last 24 Hours (Table) 11/04/17 Range/Units 10:30 RDW 17.9 H (11.5-15.5) % Plt Count 147 L (150-450) k/uL Assessment and Plan (1) Term Current Visit: Yes Status: Acute Code(s): Z34.80 - ENCOUNTER FOR SUPRVSN OF NORMAL , UNSP TRIMESTER SNOMED Code(s): 45997368 (2) H/O section Narrative/Plan: we'll plan repeat today. Risk reviewed with the patient in the office in detail including but not limited to infection, bleeding, damage to bladder, bowel, injury patient states understanding and wishes to proceed. Current Visit: Yes Status: Acute Code(s): Z98.891 - HISTORY OF UTERINE SCAR FROM PREVIOUS SURGERY SNOMED Code(s): 748869399 Time with Patient: Less than 30
[2017-11-04] MEDS ORDERED: diphenhydrAMINE 50 MG/ML 1 ML VIAL IVP PRN ×2 (13:04)
[2017-11-04] MEDS ORDERED: diphenhydrAMINE 50 MG CAP PO PRN (13:04)
[2017-11-04] MEDS ORDERED: ZOLPIDEM 5 MG TAB PO PRN (13:04)
[2017-11-04] MEDS ORDERED: METOCLOPRAMIDE 5 MG/ML 2 ML VIAL IVP PRN (13:04)
[2017-11-04] MEDS ORDERED: diphenhydrAMINE 25 MG CAP PO PRN (13:04)
[2017-11-04] MEDS ORDERED: ONDANSETRON 4 MG/2 ML VIAL IVP PRN (13:04)
[2017-11-04] MEDS ORDERED: NALOXONE 0.4 MG/ML 1 ML VIAL IV PRN ×2 (13:04→13:59)
[2017-11-04] MEDS ORDERED: IBUPROFEN 600 MG TAB PO PRN (13:04)
[2017-11-04] MEDS ORDERED: SIMETHICONE 80 MG CHEWABLE PO PRN (13:04)
--- NOTE | 2017-11-04 13:04 | P.OP ---
Date of Procedure: 11/04/17 Preoperative Diagnosis: IUP at 39 0, history of 1 desires repeat Postoperative Diagnosis: same Procedure(s) Performed: Repeat section with vacuum assist Anesthesia: spinal Surgeon: Chela Bragg Warehouse Representative #1: Olman Vizcarra Estimated Blood Loss (ml): 600 IV fluids (ml): 1,000 Urine output (ml): 400 Pathology: none sent Condition: stable Disposition: observation Indications for Procedure: History of 1 Operative Findings: Normal uterus and normal-appearing fallopian tubes and ovaries Description of Procedure: The patient was prepped and draped in the usual fashion after spinal anesthesia was administered by Dr. Cote. A Pfannenstiel incision was made and extended of the abdominal cavity without difficulty. The bladder peritoneum was visualized and away from the operating field. A 2 cm incision was made in the transverse plane of the lower uterine segment to enter the uterus at which time clear fluid was noted. The incision was extended in both directions bluntly. The head was encountered within the field and delivered up and through the incision via vaccum assist where the nose and mouth were thoroughly suctioned. Remainder of the was delivered onto the surgical field where the cord was doubly clamped, cut, and the infant was passed for resuscitative measures with weight and Apgars as noted above. A segment of cord was then doubly clamped, cut, and set aside should cord gases become necessary. The placenta was delivered manually, intact, and was grossly normal with a grossly normal three-vessel cord. The uterus was exteriorized and the interior cavity of the uterus swept of any remaining placental and membranous fragments with a laparotomy sponge. The margins of the incision were grasped with Allis clamps and the incision closed in 2 layers. First layer was a running locking layer of 0 vicryl from margin to margin followed by a second layer of imbricating 0 vicryl from margin to margin. Any small points of bleeding were then made hemostatic with the Bovie. Once hemostasis was achieved, the posterior cul-de- sac was suctioned with a guard and the uterine and ovarian findings are as noted above. The uterus was replaced within the abdominal cavity and the gutters swept of any remaining blood fluid or clot. The incision was again reexamined and hemostasis was noted to be excellent. Any small point of bleeding were made hemostatic with the Bovie. Once hemostasis was achieved the parietal peritoneum was loosely reapproximated. The layer of muscles were examined and made hemostatic with the Bovie. Attention was then turned to the fascia which was closed with 2 running stitches of 0 Vicryl proceeding from the lateral margins to the midpoint. The subcutaneous tissues were irrigated, made hemostatic with the Bovie, and reapproximated with a running stitch of 30 plain catgut. The skin was reapproximated with 4-0 vicryl. Estimated blood loss for the case was approximately 600 mL. All sponge instrument and needle counts are correct. There were no complications. The patient tolerated the procedure well and proceeded to the recovery room in stable condition. Both mother and infant are resting comfortably in recovery.
[2017-11-04] MEDS ORDERED: OXYTOCIN 20 UNITS/1000 ML NS 1,000 ML IV SCH (13:15)
[2017-11-04] MEDS ORDERED: ACETAMINOPHEN IV (For NPO) 1,000 MG in EMPTY BAG 1 BAG IVPB ONE (13:15)
[2017-11-04] MEDS: ACETAMINOPHEN IV (For NPO) 1,000 MG in EMPTY BAG 1 BAG IVPB SCH (13:38)
[2017-11-04] MEDS ORDERED: MORPHINE SULFATE 2 MG/ML SYRINGE IVP PRN (13:59)
[2017-11-04] MEDS: LACTATED RINGERS 1,000 ML IV SCH (18:35)
[2017-11-04] MEDS: SENNOSIDES-DOCUSATE SODIUM 1 EACH TAB PO SCH (20:49)
[2017-11-05] MEDS: IBUPROFEN IV 800 MG in SODIUM CHLORIDE 0.9% 250 ML IV SCH ×2 (03:02→08:31)
[2017-11-05] MEDS: LACTATED RINGERS 1,000 ML IV SCH (03:03)
[2017-11-05] MEDS: ACETAMINOPHEN IV (For NPO) 1,000 MG in EMPTY BAG 1 BAG IVPB SCH ×2 (03:04→12:21)
--- NOTE | 2017-11-05 08:24 | P.PN ---
Subjective Progress Note Date: 11/05/17 Principal diagnosis: Postop day 1, repeat Patient is doing well postoperatively. She denies pain. She is ambulating and voiding without difficulty. She states her lochia is mild, and she is bottle feeding. She is tolerating a regular diet without nausea or vomiting Objective - Vital Signs Vital signs: Vital Signs Temp 98.7 F 11/05/17 04:00 Pulse 90 11/05/17 04:00 Resp 15 11/05/17 04:00 BP 124/71 11/05/17 04:00 Pulse Ox 99 11/05/17 03:00 Intake & Output 11/04/17 11/05/17 11/05/17 18:59 06:59 18:59 Intake Total 600 Output Total 150 1450 Balance 450 -1450 Weight 164.2 kg Intake: IV 600 Lactated Ringers 1,000 ml 600 @ 125 mls/hr IV .Q8H JUAN Rx#:[id number] Output: Urine 150 1450 Uretheral (Vasquez) 200 Other: Voiding Method Indwelling Catheter # Voids 2 - Constitutional General appearance: Present: no acute distress - Gastrointestinal General gastrointestinal: Present: normal bowel sounds, soft - Psychiatric Psychiatric: Present: A&O x's 3, appropriate affect - Labs CBC & Chem 7: 11/04/17 10:30 Labs: Abnormal Lab Results - Last 24 Hours (Table) 11/04/17 Range/Units 10:30 RDW 17.9 H (11.5-15.5) % Plt Count 147 L (150-450) k/uL Assessment and Plan (1) Term Current Visit: Yes Status: Acute Code(s): Z34.80 - ENCOUNTER FOR SUPRVSN OF NORMAL , UNSP TRIMESTER SNOMED Code(s): 09113756 (2) H/O section Narrative/Plan: We'll continue routine postoperative care today. Patient will be encouraged to increase ambulation. Current Visit: Yes Status: Acute Code(s): Z98.891 - HISTORY OF UTERINE SCAR FROM PREVIOUS SURGERY SNOMED Code(s): 369852881
[2017-11-05] MEDS: SENNOSIDES-DOCUSATE SODIUM 1 EACH TAB PO SCH ×2 (08:28→21:02)
[2017-11-05 08:32] LABS: Anisocytosis Slight; Basophils % (A) 0 %; Eosinophils # (A) 0.1 k/uL (0-0.7); Eosinophils % (A) 1 %; HCT 37.3 % (34.0-46.0); HGB 12.3 gm/dL (11.4-16.0); Lymphocytes # (A) 3.8 k/uL (1.0-4.8); Lymphocytes % (A) 32 %; MCH 27.6 pg (25.0-35.0); MCHC 32.8 g/dL (31.0-37.0); MCV 84.1 fL (80.0-100.0); Mean Platelet Volume 8.6; Monocytes # (A) 0.4 k/uL (0-1.0); Monocytes % (A) 4 %; Neutrophils # (A) 7.2 k/uL (1.3-7.7); Neutrophils % (A) 62 %; Platelet Count 142 k/uL (150-450); RBC 4.44 m/uL (3.80-5.40); RDW 16.8 % (11.5-15.5); WBC 11.7 k/uL (3.8-10.6)
--- NOTE | 2017-11-05 08:32 | P.PN ---
Progress Note - Text Anesthesia POD 1. Patient is status post section under spinal anesthesia with intra-thecal preservative free morphine 300 g. Minimal pruritus, good post-op analgesia, and no headache or other complications.
[2017-11-05] MEDS: PRENATAL VIT-IRON-FOLIC ACID 1 EACH CAP PO SCH (10:02)
[2017-11-05] MEDS ORDERED: Acetaminophen-Codeine 300-30mg TAB PO PRN ×2 (12:00)
[2017-11-05] MEDS: ACETAMINOPHEN TAB 325 MG TAB PO PRN (21:03)
[2017-11-06] MEDS: LACTATED RINGERS 1,000 ML IV SCH (01:43)
[2017-11-06] MEDS: ACETAMINOPHEN IV (For NPO) 1,000 MG in EMPTY BAG 1 BAG IVPB SCH (01:43)
[2017-11-06] MEDS: ACETAMINOPHEN TAB 325 MG TAB PO PRN (05:11)
[2017-11-06] MEDS: SENNOSIDES-DOCUSATE SODIUM 1 EACH TAB PO SCH (08:20)
[2017-11-06 08:45] VITALS: BP 138/80; PULSE 103; RESP 18; TEMP 97.4
--- NOTE | 2017-11-06 09:36 | P.DS ---
Providers Date of admission: 11/04/17 10:05 Expected date of discharge: 11/06/17 Attending physician: Chela Bragg Primary care physician: Kirk Loomis - Discharge Diagnosis(es) (1) H/O section Current Visit: Yes Status: Acute (2) Term Current Visit: Yes Status: Acute Hospital Course: This is a 27-year-old woman who was admitted on 11/04/2017 for scheduled repeat low transverse section. She underwent an uncomplicated repeat section and was delivered of a liveborn female infants please see the delivery summary and operative report for details. Her postoperative course was unremarkable. By postoperative day #1 she was ambulating and voiding without difficulty and was tolerating a general diet. Her pain was controlled with oral pain medications. She did have some increase in lower extremity edema. Her postoperative labs were stable. By postoperative day #2 she continued to do quite well. Her vital signs were stable. She did have 3+ lower extremity pitting edema with no erythema tenderness or asymmetry. Her incision appeared well healing. She was therefore discharged home with routine instructions for postoperative care and follow-up. Procedures: Repeat low transverse section Patient Condition at Discharge: Good Plan - Discharge Summary Discharge Rx Participant: No New Discharge Prescriptions: New Acetaminophen Tab [Tylenol] 650 mg PO Q4HR PRN tab PRN Reason: Mild Pain Or Fever >= 100.5 No Action Pnv,Calcium 72/Iron/Folic Acid [ Plus Tablet] 1 tab PO DAILY Discharge Medication List Pnv,Calcium 72/Iron/Folic Acid [ Plus Tablet] 1 tab PO DAILY 09/04/17 [ History] Acetaminophen Tab [Tylenol] 650 mg PO Q4HR PRN tab 11/06/17 [Rx] Activity/Diet/Wound Care/Special Instructions: Follow-up in the office 2 weeks postoperatively or sooner with any concerning signs or symptoms including heavy vaginal bleeding, redness or foul drainage from the incision, severe abdominal pain, fever greater than 100.5, redness or swelling of the lower extremities. May use [id number] extra strength Tylenol and/or ibuprofen as needed for pain. Discharge Disposition: HOME SELF-CARE
[2017-11-06] MEDS: PRENATAL VIT-IRON-FOLIC ACID 1 EACH CAP PO SCH (12:02)
== END 2017-11-06 10:30 | disposition home or self-care (01) | DRG 766 ==
LOC: 4FBP 10:05
PROVIDERS: ADMIT Obstetrics & Gynecology Obstetrics; ATTEND Obstetrics & Gynecology Obstetrics
PROC: 10D00Z1 Extraction of Products of Conception, Low, Open Approach (ICD-10-PCS; principal; 2017-11-04 12:00)
DX: O34.211 Maternal care for low transverse scar from previous cesarean delivery (principal); O16.4 Unspecified maternal hypertension, complicating childbirth; O12.04 Gestational edema, complicating childbirth; Z37.0 Single live birth; Z3A.39 39 weeks gestation of pregnancy; Z87.891 Personal history of nicotine dependence; Z88.1 Allergy status to other antibiotic agents
CPT/HCPCS: 85025; 86850; 86900; 86901; 88307; 94760

== ENCOUNTER 2018-03-07 13:13 | Emergency (ER) | payer BC ==
[2018-03-07 13:29] VITALS: BP 183/90; PULSE 84; RESP 18; TEMP 97
--- NOTE | 2018-03-07 13:46 | ED ---
General Adult HPI - General Chief complaint: Skin/Abscess/Foreign Body Stated complaint: Abcess/Leg Time Seen by Provider: 03/07/18 13:35 Source: patient, RN notes reviewed Mode of arrival: ambulatory Limitations: no limitations - History of Present Illness Initial comments: 27-year-old female with no significant past medical history presents for evaluation of pain and swelling in the left posterior thigh. Symptoms have been present for approximately 5 days, there was some mild purulent drainage from the site. Did start as possible ingrown hair or pimple. Patient is not immunosuppressed, she has no history diabetes. She is not on any medication. She denies fever or chills. Denies any other symptoms. - Related Data Previous Rx's Medication Instructions Recorded Sulfamethox-Tmp 800-160Mg [Bactrim 1 tab PO Q12HR #20 tab 03/07/18 DS 800-160 mg] Allergies Allergy/AdvReac Type Severity Reaction Status Date / Time ceftriaxone [From Rocephin] Allergy Mild flushing Verified 03/07/18 13:30 Review of Systems ROS Statement: Those systems with pertinent positive or pertinent negative responses have been documented in the HPI. ROS Other: All systems not noted in ROS Statement are negative. Past Medical History Past Medical History: Hypertension, Pneumonia Additional Past Medical History / Comment(s): Gestational hypertension History of Any Multi-Drug Resistant Organisms: None Reported Past Surgical History: Section Additional Past Surgical History / Comment(s): wisdom teeth Past Anesthesia/Blood Transfusion Reactions: No Reported Reaction, Motion Sickness Additional Past Anesthesia/Blood Transfusion Reaction / Comment(s): no hx blood transfusion Past Psychological History: No Psychological Hx Reported Smoking Status: Former smoker Past Alcohol Use History: None Reported Past Drug Use History: None Reported - Past Family History Father Family Medical History: Hypertension Additional Family Medical History / Comment(s): grandmother has nonhodgkins lymphoma Mother Additional Family Medical History / Comment(s): maternal grandmother nonhodgkin' s lymphoma General Exam Limitations: no limitations General appearance: alert, in no apparent distress Head exam: Present: atraumatic, normocephalic Eye exam: Present: normal appearance, PERRL, EOMI ENT exam: Present: normal exam Neck exam: Present: normal inspection. Absent: tenderness, meningismus Respiratory exam: Present: normal lung sounds bilaterally, respiratory distress Cardiovascular Exam: Present: regular rate, normal rhythm GI/Abdominal exam: Present: soft. Absent: distended, tenderness, guarding Extremities exam: Present: other (Left posterior thigh, mid thigh. Area of cellulitis approximately 4 cm with central opening with dried blood. No purulence. There is no fluctuation or drainable abscess.) Course Vital Signs 03/07/18 13:22 Temperature 97.0 F L Pulse Rate 84 Respiratory 18 Rate Blood Pressure 183/90 O2 Sat by Pulse 97 Oximetry Medical Decision Making - Medical Decision Making 27-year-old female with cellulitis of the left posterior thigh. Patient is otherwise well-appearing. There is no drainable abscess collection at this time. Patient will continue to soak the area. She will be prescribed antibiotics. She will watch for worsening erythema or the development of central abscess. Return to emergency department with worsening or changing symptoms. Disposition Clinical Impression: Cellulitis of left thigh Disposition: HOME SELF-CARE Condition: Good Instructions: Cellulitis (ED) Prescriptions: Sulfamethox-Tmp 800-160Mg [Bactrim DS 800-160 mg] 1 tab PO Q12HR #20 tab Is patient prescribed a controlled substance at d/c from ED?: No Referrals: Kirk Loomis MD [Primary Care Provider] - 1-2 days Time of Disposition: 13:46
== END 2018-03-07 13:56 | disposition home or self-care (01) ==
LOC: EC 13:13
DX: L03.116 Cellulitis of left lower limb (principal); Z88.1 Allergy status to other antibiotic agents; Z87.891 Personal history of nicotine dependence
CPT/HCPCS: 99282

== ENCOUNTER 2018-03-10 17:02 | Emergency (ER) | payer BC ==
[2018-03-10 17:10] VITALS: BP 162/70; PULSE 112; RESP 18; TEMP 98.5
--- NOTE | 2018-03-10 17:28 | ED ---
Skin/Abscess/FB HPI - General Chief complaint: Skin/Abscess/Foreign Body Stated complaint: INFECTION ON LEFT LEG Time Seen by Provider: 03/10/18 17:11 Source: patient, RN notes reviewed, old records reviewed Mode of arrival: ambulatory Limitations: no limitations - History of Present Illness Initial comments: This is a 27-year-old female who presents to the emergency department with chief complaint of infection on her left leg. Patient was seen this past Thursday and diagnosed with cellulitis. She was started on Bactrim. She states that she has been taking Bactrim since Thursday night. She states that she was told to return to the emergency department if an abscess formed or if redness was spreading. Patient states that the redness has not spread, however she has developed an abscess. She states it has been draining a little bit. She denies any fevers or chills. Denies chest pain or shortness of breath, abdominal pain, nausea or vomiting, diarrhea or constipation, dizziness or headache. - Related Data Previous Rx's Medication Instructions Recorded Sulfamethox-Tmp 800-160Mg [Bactrim 1 tab PO Q12HR #20 tab 03/07/18 DS 800-160 mg] Allergies Allergy/AdvReac Type Severity Reaction Status Date / Time ceftriaxone [From Rocephin] Allergy Mild flushing Verified 03/10/18 17:10 Review of Systems ROS Statement: Those systems with pertinent positive or pertinent negative responses have been documented in the HPI. ROS Other: All systems not noted in ROS Statement are negative. Past Medical History Past Medical History: Hypertension, Pneumonia Additional Past Medical History / Comment(s): Gestational hypertension History of Any Multi-Drug Resistant Organisms: None Reported Past Surgical History: Section Additional Past Surgical History / Comment(s): wisdom teeth Past Anesthesia/Blood Transfusion Reactions: No Reported Reaction, Motion Sickness Additional Past Anesthesia/Blood Transfusion Reaction / Comment(s): no hx blood transfusion Past Psychological History: No Psychological Hx Reported Smoking Status: Former smoker Past Alcohol Use History: None Reported Past Drug Use History: None Reported - Past Family History Father Family Medical History: Hypertension Additional Family Medical History / Comment(s): grandmother has nonhodgkins lymphoma Mother Additional Family Medical History / Comment(s): maternal grandmother nonhodgkin' s lymphoma General Exam - General Exam Comments Initial Comments: General: Awake and alert, well-developed; in no apparent distress. Does not appear acutely ill. HEENT: Head atraumatic, normocephalic. Pupils are equal, round and reactive to light. Extraocular movements intact. Oropharynx moist without erythema or exudate. Neck: Supple. Normal ROM. Cardiovascular: Regular rate and rhythm. No murmurs, rubs or gallops. Chest symmetrical. Respiratory: Lungs clear to auscultation bilaterally. No wheezes, rales or rhonchi. Normal respiratory effort with no use of accessory muscles. Musculoskeletal: Normal ROM, no tenderness bilateral upper and lower extremities. Ambulating normally. Skin: Peridot, warm and dry. Left proximal posterior thigh: Circular marking designating area of cellulitis is present. Redness does not appear to have spread beyond this border. Approximately 4 cm in diameter area of erythema and induration with central pustule measuring approximately 1 cm in diameter. Mild active purulent drainage. Neurological: Alert and oriented x3. CN II-XII grossly intact. Speech is fluent and answers are appropriate. No focal neuro deficits. Psychiatric: Normal mood and affect. No overt signs of depression or anxiety noted. Limitations: no limitations Course Vital Signs 03/10/18 17:07 Temperature 98.5 F Pulse Rate 112 H Respiratory 18 Rate Blood Pressure 162/70 O2 Sat by Pulse 99 Oximetry Procedures - Incision & Drainage Consent Obtained: verbal consent Indication: Abscess Site: lower extremity (Posterior proximal left thigh) Size (cm): 1 Anesthetic Used: lidocaine 1% Amount (mLs): 5 I&D Cleaning Method: Alcohol Wipe Scalpel Used: #11 I&D Drainage Obtained: Pus, Blood Culture Obtained?: No Patient Tolerated Procedure: well, no complications Medical Decision Making - Medical Decision Making This is a 27-year-old female, previously diagnosed with cellulitis, who presents to the emergency department with chief complaint of abscess formation. Patient was started on Bactrim for a left posterior thigh cellulitis this past Thursday. Patient has been taking her medication. She states that a central abscess has formed with mild drainage. She denies any spreading of the redness. On physical examination, the marker designating area of cellulitis is present. Redness does not spread beyond this point. There is a central abscess. I&D was performed and patient tolerated well without complication. Recommended continuing monitoring of the area. Return parameters were discussed. Recommended continuing warm compresses and finishing Bactrim in its entirety. Patient's vital signs are stable and she is in no acute distress. She is healthy-appearing. She will be discharged home at this time. She is in agreement with plan and voiced understanding. All questions were answered. Disposition Clinical Impression: Cellulitis and abscess of left lower extremity Disposition: HOME SELF-CARE Condition: Good Instructions: Abscess Incision and Drainage (ED), Abscess (ED) Additional Instructions: Please continue monitoring spreading of redness. Please continue warm compresses and finish entire course of Bactrim as was previously prescribed. Please follow up with primary care provider within 1-2 days. Return to emergency department if symptoms should worsen or any concerns arise. Is patient prescribed a controlled substance at d/c from ED?: No Referrals: Kirk Loomis MD [Primary Care Provider] - 1-2 days Time of Disposition: 17:35
== END 2018-03-10 17:55 | disposition home or self-care (01) ==
LOC: EC 17:02
DX: L02.416 Cutaneous abscess of left lower limb (principal); L03.116 Cellulitis of left lower limb; Z87.891 Personal history of nicotine dependence; Z88.1 Allergy status to other antibiotic agents
CPT/HCPCS: 10060; 99283

== ENCOUNTER 2020-02-01 14:34 | Observation (INO) | payer BC ==
[2020-02-01] MEDS ORDERED: LACTATED RINGERS 1,000 ML IV SCH ×2 (15:30→17:45)
[2020-02-01 15:49] LABS: Basophils % (A) 0 %; Eosinophils # (A) 0.1 k/uL (0-0.7); Eosinophils % (A) 1 %; HCT 34.9 % (34.0-46.0); HGB 11.6 gm/dL (11.4-16.0); Lymphocytes # (A) 1.5 k/uL (1.0-4.8); Lymphocytes % (A) 17 %; MCH 26.6 pg (25.0-35.0); MCHC 33.2 g/dL (31.0-37.0); MCV 80.2 fL (80.0-100.0); Mean Platelet Volume 9.1; Monocytes # (A) 0.4 k/uL (0-1.0); Monocytes % (A) 4 %; Neutrophils # (A) 6.9 k/uL (1.3-7.7); Neutrophils % (A) 77 %; Platelet Count 144 k/uL (150-450); RBC 4.36 m/uL (3.80-5.40); RDW 15.6 % (11.5-15.5)
[2020-02-01 15:54] LABS: Appearance,Urine Cloudy (Clear); Bacteria,Urine Occasional /hpf; Bilirubin,Urine Negative (Negative); Blood,Urine Negative (Negative); Color,Urine Yellow; Glucose,Urine (UA) Negative (Negative); Ketones,Urine Negative (Negative); Leukocyte Esterase,Urine Negative (Negative); Mucus,Urine Rare /hpf; Nitrite,Urine Negative (Negative); Protein,Urine Trace (Negative); RBC,Urine 1 /hpf (0-5); Specific Gravity,Urine 1.022 (1.001-1.035); Squamous Epithelial Cell,Urine 2 /hpf (0-4); Urobilinogen,Urine <2.0 mg/dL (<2.0); WBC,Urine 2 /hpf (0-5)
[2020-02-01 15:58] LABS: ALT 9 U/L (4-34); AST 14 U/L (14-36); African American GFR (CKD) >90 (>60 ml/min/1.73 sqM); Blood Urea Nitrogen 7 mg/dL (7-17); LDH 363 U/L (313-618); Non-African American GFR(CKD) >90 (>60 ml/min/1.73 sqM); Uric Acid 3.7 mg/dL (3.7-7.4)
[2020-02-01 16:04] LABS: Protein/Creatinine Ratio,Urine 0.12
[2020-02-01] MEDS ORDERED: ACETAMINOPHEN IV (For NPO) 1,000 MG in EMPTY BAG 1 BAG IVPB ONE (16:04)
[2020-02-01 16:05] LABS: Creatinine,Urine Random 99.8 mg/dL
[2020-02-01] MEDS ORDERED: ACETAMINOPHEN TAB 325 MG TAB PO PRN (17:32)
[2020-02-01 20:31] VITALS: RESP 16
[2020-02-02 07:01] LABS: Basophils % (A) 0 %; Eosinophils # (A) 0.1 k/uL (0-0.7); Eosinophils % (A) 1 %; HCT 33.4 % (34.0-46.0); Lymphocytes # (A) 1.7 k/uL (1.0-4.8); Lymphocytes % (A) 22 %; MCH 26.7 pg (25.0-35.0); MCHC 32.9 g/dL (31.0-37.0); MCV 81.3 fL (80.0-100.0); Mean Platelet Volume 9.5; Monocytes # (A) 0.3 k/uL (0-1.0); Monocytes % (A) 4 %; Neutrophils # (A) 5.8 k/uL (1.3-7.7); Neutrophils % (A) 72 %; Platelet Count 131 k/uL (150-450); RBC 4.11 m/uL (3.80-5.40); RDW 15.9 % (11.5-15.5); WBC 8.1 k/uL (3.8-10.6)
[2020-02-02 07:04] LABS: ALT 8 U/L (4-34); AST 14 U/L (14-36); African American GFR (CKD) >90 (>60 ml/min/1.73 sqM); Blood Urea Nitrogen 5 mg/dL (7-17); LDH 357 U/L (313-618); Non-African American GFR(CKD) >90 (>60 ml/min/1.73 sqM)
--- NOTE | 2020-02-02 08:41 | P.HPOB ---
History of Present Illness H&P Date: 02/02/20 Chief Complaint: IUP at 32-0/7 weeks, gestational hypertension This is a pleasant 29-year-old 3 para 10/12/2002 at 32-0/7 weeks that presents to labor and delivery with complaints of headache unrelieved by Tylenol at home. Patient states she is noting good movement she denies vaginal bleeding or loss of fluid. She denies contractions. She denies right upper quadrant pain she denies increase in lower remedies swelling. Patient doesn't a history of gestational hypertension in her first and was delivered at 35 weeks with a twin gestation. Patient's second was a single 10 complications no hypertension issues were noted. patient is currently working at [employer] which has caused her increased stress she states she did work on thursday and was very anxious about this. patient is seen this morning and states she is feeling well. she states her headache is now gone. she denies any concerns this morning. blood pressures overnight were very labile in nature, highest being 153/80. NSTs have been reactive since she presented in triage yesterday evening. Review of Systems Constitutional: Denies chills, Denies fatigue, Denies fever Ears, nose, mouth and throat: Denies headache Cardiovascular: Reports leg edema Respiratory: Denies cough, Denies dyspnea Gastrointestinal: Denies constipation, Denies diarrhea, Denies nausea, Denies vomiting Genitourinary: Reports Past Medical History Past Medical History: Hypertension, Pneumonia Additional Past Medical History / Comment(s): Gestational hypertension History of Any Multi-Drug Resistant Organisms: None Reported Past Surgical History: Section Additional Past Surgical History / Comment(s): wisdom teeth Past Anesthesia/Blood Transfusion Reactions: No Reported Reaction, Motion Sickness Additional Past Anesthesia/Blood Transfusion Reaction / Comment(s): no hx blood transfusion Past Psychological History: No Psychological Hx Reported Smoking Status: Never smoker Past Alcohol Use History: None Reported Additional Past Alcohol Use History / Comment(s): quit smoking on and off for approx 10yrs <1ppd Past Drug Use History: None Reported - Past Family History Father Family Medical History: Hypertension Additional Family Medical History / Comment(s): grandmother has nonhodgkins lymphoma Mother Additional Family Medical History / Comment(s): maternal grandmother nonhodgkin's lymphoma Medications and Allergies Home Medications Medication Instructions Recorded Confirmed Type Pnv No.95/Ferrous Fum/Folic AC 1 each PO DAILY 02/01/20 02/01/20 History [ Multivitamin Tablet] Allergies Allergy/AdvReac Type Severity Reaction Status Date / Time ceftriaxone [From Rocephin] Allergy Mild flushing Verified 02/01/20 14:55 Exam Osteopathic Statement: *. No significant issues noted on an osteopathic structural exam other than those noted in the History and Physical/Consult. 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 She is resting comfortably eating her breakfast. Breathing is noted to be nonlabored, heart has regular rate and rhythm. Abdomen is gravid, cervical exam is deferred. heart tones on NST have been reactive and no contractions have been noted. Results Result Diagrams: 02/02/20 05:25 02/02/20 05:25 Abnormal Lab Results - Last 24 Hours (Table) 02/01/20 02/01/20 02/01/20 Range/Units 14:40 15:37 15:37 Hgb (11.4-16.0) gm/dL Hct (34.0-46.0) % RDW 15.6 H (11.5-15.5) % Plt Count 144 L (150-450) k/uL BUN (7-17) mg/dL Creatinine 0.35 L (0.52-1.04) mg/dL Urine Appearance Cloudy H (Clear) Urine Protein Trace H (Negative) Urine Bacteria Occasional H (None) /hpf Urine Mucus Rare H (None) /hpf 02/02/20 02/02/20 Range/Units 05:25 05:25 Hgb 11.0 L (11.4-16.0) gm/dL Hct 33.4 L (34.0-46.0) % RDW 15.9 H (11.5-15.5) % Plt Count 131 L (150-450) k/uL BUN 5 L (7-17) mg/dL Creatinine 0.38 L (0.52-1.04) mg/dL Urine Appearance (Clear) Urine Protein (Negative) Urine Bacteria (None) /hpf Urine Mucus (None) /hpf Assessment and Plan (1) 32 weeks gestation of Current Visit: Yes Status: Acute Code(s): Z3A.32 - 32 WEEKS GESTATION OF SNOMED Code(s): 4324720 (2) Gestational HTN Current Visit: Yes Status: Acute Code(s): O13.9 - GESTATIONAL HTN W/O SIGNIFICANT PROTEINURIA, UNSP TRIMESTER SNOMED Code(s): 047758159 Plan: Patient is currently in the process of completing a 24-hour urine will be done later this evening. I do not suspect that this will be elevated. Patient's repeat preeclampsia labs are normal in nature. Patient is asymptomatic this morning. I do believe increased stress at work has caused her to have her headache, she is now symptom free. We'll plan to complete 24-hour urine if as suspected it is low she can be discharged home with close follow-up in the office. I did discuss diagnosis of gestational hypertension with this patient all questions are answered, do not believe she has preeclampsia at this time. We will monitor closely for increasing symptoms. Preeclampsia symptoms are discussed with patient and all questions are answered at this time.
[2020-02-02] MEDS ORDERED: PRENATAL VIT-IRON-FOLIC ACID 1 EACH CAP PO SCH (09:00)
[2020-02-02] MEDS ORDERED: LABETALOL 100 MG TAB PO SCH (09:00)
[2020-02-02 15:45] LABS: Total Volume 24 Hour,Urine 2750 mls (800-1800)
[2020-02-02 15:57] LABS: Total Protein 24 Hour,Urine 303 mg/24hr (42.0-225.0)
[2020-02-02 16:25] VITALS: BP 115/78; PULSE 86; TEMP 98
== END 2020-02-02 16:54 | disposition home or self-care (01) ==
LOC: FBPOP 14:34 → 4FBP 16:58
PROVIDERS: ADMIT Obstetrics & Gynecology Obstetrics; ATTEND Obstetrics & Gynecology Obstetrics
DX: O13.3 Gestational [pregnancy-induced] hypertension without significant proteinuria, third trimester (principal); Z3A.32 32 weeks gestation of pregnancy; Z80.7 Family history of other malignant neoplasms of lymphoid, hematopoietic and related tissues; Z82.49 Family history of ischemic heart disease and other diseases of the circulatory system
CPT/HCPCS: 59025; 99215; 96361; 96365; 96374; 82570; 84156 ×2; 81050; 82565 ×2; 83615 ×2; 84450 ×2; 84460 ×2; 84520 ×2; 84550 ×2; 85025 ×2; 81001; G0378 ×2; J0131

== ENCOUNTER 2020-02-14 04:44 | Outpatient (CLI) | payer BC ==
[2020-02-14] MEDS ORDERED: diphenhydrAMINE 50 MG CAP PO STA (05:35)
[2020-02-14 05:49] LABS: Appearance,Urine Cloudy (Clear); Bacteria,Urine Moderate /hpf; Bilirubin,Urine Negative (Negative); Blood,Urine Negative (Negative); Color,Urine Light Yellow; Glucose,Urine (UA) Negative (Negative); Ketones,Urine Trace (Negative); Leukocyte Esterase,Urine Negative (Negative); Mucus,Urine Rare /hpf; Nitrite,Urine Negative (Negative); PH, Urine 6.5 (5.0-8.0); Protein,Urine Negative (Negative); RBC,Urine 1 /hpf (0-5); Specific Gravity,Urine 1.007 (1.001-1.035); Squamous Epithelial Cell,Urine 3 /hpf (0-4); Urobilinogen,Urine <2.0 mg/dL (<2.0); WBC,Urine 2 /hpf (0-5)
[2020-02-14 06:02] LABS: Protein/Creatinine Ratio,Urine 0.288
[2020-02-14 06:14] VITALS: RESP 16; TEMP 97.6
[2020-02-14 06:14] LABS: Anisocytosis Slight; Basophils % (A) 0 %; Eosinophils # (A) 0.1 k/uL (0-0.7); Eosinophils % (A) 1 %; HCT 36.5 % (34.0-46.0); HGB 12.1 gm/dL (11.4-16.0); Lymphocytes # (A) 1.9 k/uL (1.0-4.8); Lymphocytes % (A) 19 %; MCH 27.8 pg (25.0-35.0); MCHC 33.2 g/dL (31.0-37.0); MCV 83.8 fL (80.0-100.0); Monocytes # (A) 0.4 k/uL (0-1.0); Monocytes % (A) 4 %; Neutrophils # (A) 7.7 k/uL (1.3-7.7); Neutrophils % (A) 76 %; Platelet Count 136 k/uL (150-450); RBC 4.36 m/uL (3.80-5.40); RDW 16.4 % (11.5-15.5); WBC 10.2 k/uL (3.8-10.6)
[2020-02-14 06:20] LABS: INR 0.9 (<1.2); Partial Thromboplastin Time 26.1 sec (22.0-30.0); Prothrombin Time 9.4 sec (9.0-12.0)
[2020-02-14 06:21] LABS: ALT 10 U/L (4-34); AST 15 U/L (14-36); African American GFR (CKD) >90 (>60 ml/min/1.73 sqM); Blood Urea Nitrogen 4 mg/dL (7-17); LDH 392 U/L (313-618); Non-African American GFR(CKD) >90 (>60 ml/min/1.73 sqM)
[2020-02-14 06:48] VITALS: BP 125/60; PULSE 84
== END 2020-02-14 06:40 | disposition home or self-care (01) ==
LOC: FBPOP 04:44
PROVIDERS: ATTEND Obstetrics & Gynecology
DX: O99.89 Other specified diseases and conditions complicating pregnancy, childbirth and the puerperium (principal); R22.40 Localized swelling, mass and lump, unspecified lower limb; Z3A.33 33 weeks gestation of pregnancy
CPT/HCPCS: 59025; 81001; 82239; 82565; 82570; 83615; 84156; 84450; 84460; 84520; 84550; 85025; 85384; 85610; 85730; 99215

== ENCOUNTER 2020-03-06 15:32 | Outpatient (CLI) | payer BC ==
[2020-03-06] MEDS ORDERED: BETAMET ACET-BETAMETH SOD PHOS 6 MG/ML MDV IM SCH (15:45)
== END 2020-03-06 15:45 | disposition home or self-care (01) ==
LOC: FBPOP 15:32
PROVIDERS: ATTEND Obstetrics & Gynecology Obstetrics
DX: O13.9 Gestational [pregnancy-induced] hypertension without significant proteinuria, unspecified trimester (principal); Z3A.00 Weeks of gestation of pregnancy not specified
CPT/HCPCS: 96372; J0702

== ENCOUNTER 2020-03-07 15:02 | Outpatient (CLI) | payer BC ==
[2020-03-07] MEDS ORDERED: BETAMET ACET-BETAMETH SOD PHOS 6 MG/ML MDV IM SCH (15:30)
== END 2020-03-07 15:40 | disposition home or self-care (01) ==
LOC: FBPOP 15:02
PROVIDERS: ATTEND Obstetrics & Gynecology Obstetrics
DX: O13.9 Gestational [pregnancy-induced] hypertension without significant proteinuria, unspecified trimester (principal); Z3A.00 Weeks of gestation of pregnancy not specified
CPT/HCPCS: 96372; J0702

== ENCOUNTER → 2020-03-07 | Outpatient (CLI) | payer BC | END | disposition home or self-care (01) | LOC: LABWHC1 14:49 | PROVIDERS: ATTEND Obstetrics & Gynecology Obstetrics | DX: Z11.59 Encounter for screening for other viral diseases (principal) ==

== ENCOUNTER 2020-03-08 08:36 | Inpatient (IN) | payer BC ==
[2020-03-08] MEDS ORDERED: ceFAZolin 3 GM in SODIUM CHLORIDE 0.9% 100 ML IVPB ONE (09:57)
[2020-03-08] MEDS ORDERED: CITRIC ACID-SODIUM CITRATE 15 ML CUP PO ONE (09:57)
[2020-03-08] MEDS: LACTATED RINGERS 1,000 ML IV SCH ×3 (11:00→18:22)
[2020-03-08 11:53] LABS: Basophils % (A) 0 %; Eosinophils % (A) 0 %; HCT 36.1 % (34.0-46.0); HGB 12.2 gm/dL (11.4-16.0); Lymphocytes % (A) 13 %; MCH 27.8 pg (25.0-35.0); MCHC 33.7 g/dL (31.0-37.0); MCV 82.4 fL (80.0-100.0); Mean Platelet Volume 9.1; Monocytes # (A) 0.8 k/uL (0-1.0); Monocytes % (A) 5 %; Neutrophils # (A) 13.2 k/uL (1.3-7.7); Neutrophils % (A) 81 %; Platelet Count 158 k/uL (150-450); RBC 4.38 m/uL (3.80-5.40); WBC 16.4 k/uL (3.8-10.6)
[2020-03-08] MEDS ORDERED: MORPHINE SULFATE (PF) 0.3 MG/0.3 ML SYR ONE (12:08)
[2020-03-08] MEDS ORDERED: OXYTOCIN 10 UNIT/ML 1 ML VIAL ONE (12:08)
[2020-03-08] MEDS ORDERED: fentaNYL (PF) 50 MCG/ML 2 ML AMP ONE (12:08)
[2020-03-08] MEDS ORDERED: ONDANSETRON 4 MG/2 ML VIAL ONE (12:08)
--- NOTE | 2020-03-08 13:13 | P.HPOB ---
History of Present Illness H&P Date: 03/08/20 Chief Complaint: IUP at 37 and 1/sevenths weeks, gestational hypertension, h/o c/s x 2 This is a pleasant 29-year-old 3 para 1023 at 37 and one sevenths weeks with an estimated due date of 03/28/2020. Patient presents for repeat section with tubal ligation. Patient has a history of preeclampsia with her first delivery, second delivery without issue. With this she was noted to have elevated blood pressures with negative preeclampsia symptoms/l abs/24 urine. Patient was placed on 200 mg of labetalol and blood pressures have been controlled 140s over 80s. Patient is without symptoms throughout this time. Patient is counseled on secondary to gestational hypertension at 37 weeks. Patient did receive 2 doses of betamethasone prior to Patient notes good movement this morning, denies contractions or vaginal bleeding, loss of fluid. Patient has been receiving routine care with myself with complications as stated above. On bloodwork patient has a blood type of O+, rubella status immune, hepatitis B surface antigen negative, HIV negative, group beta strep culture was negative. Review of Systems Constitutional: Denies chills, Denies fatigue, Denies fever Ears, nose, mouth and throat: Denies headache Cardiovascular: Reports leg edema Respiratory: Denies dyspnea Gastrointestinal: Denies constipation, Denies diarrhea, Denies nausea, Denies vomiting Genitourinary: Reports Past Medical History Past Medical History: Hypertension, Pneumonia Additional Past Medical History / Comment(s): Gestational hypertension History of Any Multi-Drug Resistant Organisms: None Reported Past Surgical History: Section Additional Past Surgical History / Comment(s): wisdom teeth Past Anesthesia/Blood Transfusion Reactions: No Reported Reaction, Motion Sickne ss Additional Past Anesthesia/Blood Transfusion Reaction / Comment(s): no hx blood transfusion Past Psychological History: No Psychological Hx Reported Smoking Status: Former smoker Past Alcohol Use History: None Reported Additional Past Alcohol Use History / Comment(s): quit smoking on and off for approx 10yrs <1ppd Past Drug Use History: None Reported - Past Family History Father Family Medical History: Hypertension Additional Family Medical History / Comment(s): grandmother has nonhodgkins lymphoma Mother Additional Family Medical History / Comment(s): maternal grandmother nonhodgkin's lymphoma Medications and Allergies Home Medications Medication Instructions Recorded Confirmed Type Pnv No.95/Ferrous Fum/Folic AC 1 each PO DAILY 02/01/20 03/08/20 History [ Multivitamin Tablet] Ferrous Sulfate [Iron] 1 tab PO DAILY 02/14/20 03/08/20 History Labetalol [Trandate] 200 mg PO BID 02/14/20 03/08/20 History Allergies Allergy/AdvReac Type Severity Reaction Status Date / Time ceftriaxone [From Rocephin] Allergy Mild flushing Verified 03/08/20 10:03 Exam Osteopathic Statement: *. No significant issues noted on an osteopathic structural exam other than those noted in the History and Physical/Consult. 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 Patient's breathing is noted to be nonlabored, heart has regular rate and rhythm, abdomen is gravid, cervical exam is deferred, heart tones are noted to be category 1 and she is not nehemiah. Results Result Diagrams: 03/08/20 11:00 Abnormal Lab Results - Last 24 Hours (Table) 03/08/20 Range/Units 11:00 WBC 16.4 H (3.8-10.6) k/uL RDW 16.0 H (11.5-15.5) % Neutrophils # 13.2 H (1.3-7.7) k/uL Assessment and Plan (1) 37 weeks gestation of Current Visit: Yes Status: Acute Code(s): Z3A.37 - 37 WEEKS GESTATION OF SNOMED Code(s): 02708207 (2) Gestational HTN Current Visit: No Status: Acute Code(s): O13.9 - GESTATIONAL HTN W/O SIGNIFICANT PROTEINURIA, UNSP TRIMESTER SNOMED Code(s): 898163222 (3) H/O section Current Visit: No Status: Acute Code(s): Z98.891 - HISTORY OF UTERINE SCAR FROM PREVIOUS SURGERY SNOMED Code(s): 580129631 Plan: Patient is admitted for planned repeat section with tubal ligation. Procedures reviewed questions are answered and she states understanding. Patient wishes to proceed.
[2020-03-08] MEDS ORDERED: ZOLPIDEM 5 MG TAB PO PRN (13:16)
[2020-03-08] MEDS ORDERED: HYDROcodone/APAP 5-325MG 1 EACH TAB PO PRN (13:16)
[2020-03-08] MEDS ORDERED: METOCLOPRAMIDE 5 MG/ML 2 ML VIAL IVP PRN (13:16)
[2020-03-08] MEDS ORDERED: diphenhydrAMINE 50 MG/ML 1 ML VIAL IVP PRN ×2 (13:16)
[2020-03-08] MEDS ORDERED: NALOXONE 0.4 MG/ML 1 ML VIAL IV PRN (13:16)
[2020-03-08] MEDS ORDERED: diphenhydrAMINE 50 MG CAP PO PRN (13:16)
[2020-03-08] MEDS ORDERED: SIMETHICONE 80 MG CHEWABLE PO PRN (13:16)
[2020-03-08] MEDS ORDERED: ONDANSETRON 4 MG/2 ML VIAL IVP PRN (13:16)
[2020-03-08] MEDS ORDERED: diphenhydrAMINE 25 MG CAP PO PRN (13:16)
[2020-03-08] MEDS ORDERED: ACETAMINOPHEN TAB 325 MG TAB PO PRN (13:16)
--- NOTE | 2020-03-08 13:16 | P.OP ---
Date of Procedure: 03/08/20 Preoperative Diagnosis: IUP at 37 and 1/sevenths weeks, gestational hypertension, history of 2, family status complete. Postoperative Diagnosis: Same Procedure(s) Performed: Repeat section with tubal ligation Anesthesia: spinal Surgeon: Chela Bragg Paper Cone Machine Operator #1: Selina Masterson Estimated Blood Loss (ml): 750 IV fluids (ml): 1,000 Urine output (ml): 600 Pathology: none sent Condition: stable Disposition: observation Indications for Procedure: History of 2, family status complete desires tubal ligation, gestational hypertension. Operative Findings: Normal uterus tubes and ovaries were appreciated. Infant male delivered at 1235, weight of 8 lbs. 3 oz. with Apgars of 9 and 9 at one and 5 minutes respectively. Description of Procedure: Patient was taken back to the operating suite where spinal anesthesia was found be adequate by the anesthesia department. She was then prepped and draped in the normal sterile fashion in the dorsal supine position. A Pfannenstiel skin incision was made with the scalpel and carried through the underlying layer of fascia. The fascia was then incised in the midline and extended laterally. The superior aspect of the fascial incision was then grasped with Animas clamps, elevated and underlying rectus muscles dissected off sharply. Attention was then turned to the inferior aspect of the fascial incision which was grasped ritchie clamps, elevated and underlying rectus muscles dissected off sharply. The peritoneum was identified and entered. The incision was extended superiorly and inferiorly with good visualization the bladder. An Karey's abdominal retractor was placed in the incision as a means for visualization. Hysterotomy incision was made with the scalpel and carried through to the amniotic sac. Amniotomy was performed and clear fluid was obtained. The was delivered atraumatically in a vertex presentation. The umbilical cord was doubly clamped and cut and the was handed off to awaiting RN. The placenta was then removed manually and the uterus was cleared of all clots and debris. The uterus was delivered from the abdomen and the hysterotomy incision was closed with 0 Vicryl in a running locked fashion 2. Hemostasis was appreciated. The Filshie clip applicator was then opened and applied to bilateral fallopian tubes. Hemostasis and adequate occlusion was noted. The uterus was then returned to the abdomen and hysterotomy incision was inspected hemostasis was appreciated. The gutters were cleared of all clots and debris. The fascia was then closed with 0 Vicryl in a running fashion from one lateral edge the midline and the other lateral edge the midline. The subcu space tissue was irrigated and found to be hemostatic. It was closed with 3-0 Vicryl. The skin was then closed with 4-0 Vicryl in a subcuticular fashion. Steri-Strips and sterile dressings were applied as needed. All counts are correct 2 Patient and tolerated delivery well.
[2020-03-08] MEDS ORDERED: OXYTOCIN 20 UNITS/1000 ML NS 1,000 ML IV SCH (13:30)
[2020-03-08] MEDS ORDERED: IBUPROFEN IV 800 MG in SODIUM CHLORIDE 0.9% 250 ML IV ONE (14:00)
[2020-03-08] MEDS ORDERED: ACETAMINOPHEN IV (For NPO) 1,000 MG in EMPTY BAG 1 BAG IVPB ONE (14:00)
[2020-03-08] MEDS: SENNOSIDES-DOCUSATE SODIUM 1 EACH TAB PO SCH (19:59)
[2020-03-08] MEDS: LABETALOL 200 MG TAB PO SCH (21:43)
[2020-03-09] MEDS: IBUPROFEN 600 MG TAB PO PRN ×3 (04:07→21:01)
[2020-03-09] MEDS: LACTATED RINGERS 1,000 ML IV SCH ×3 (04:46→19:43)
--- NOTE | 2020-03-09 07:19 | P.PN ---
Progress Note - Text 03/09 710am 29-year-old female status post with a spinal Duramorph. Patient seen and evaluated this morning for postop pain control, patient had a VAS of 5 last night. No complains of nausea vomiting. Patient had mild pruritus which has subsided. Doing well this morning
[2020-03-09] MEDS: LABETALOL 200 MG TAB PO SCH ×2 (08:32→21:01)
[2020-03-09] MEDS: SENNOSIDES-DOCUSATE SODIUM 1 EACH TAB PO SCH ×2 (08:33→21:01)
[2020-03-09 08:57] LABS: Anisocytosis Slight; Basophils % (A) 0 %; Eosinophils # (A) 0.1 k/uL (0-0.7); Eosinophils % (A) 1 %; HCT 33.1 % (34.0-46.0); HGB 10.7 gm/dL (11.4-16.0); Lymphocytes % (A) 14 %; MCHC 32.4 g/dL (31.0-37.0); MCV 83.4 fL (80.0-100.0); Mean Platelet Volume 8.4; Monocytes # (A) 0.7 k/uL (0-1.0); Monocytes % (A) 5 %; Neutrophils # (A) 11.7 k/uL (1.3-7.7); Neutrophils % (A) 80 %; Platelet Count 144 k/uL (150-450); RBC 3.98 m/uL (3.80-5.40); RDW 16.3 % (11.5-15.5); WBC 14.7 k/uL (3.8-10.6)
[2020-03-09] MEDS: PRENATAL VIT-IRON-FOLIC ACID 1 EACH CAP PO SCH (09:38)
--- NOTE | 2020-03-09 11:08 | P.PNOBGPC ---
Subjective - Subjective Principal diagnosis: Postop day 1, repeat section with tubal ligation Interval history: Patient is doing well since yesterday afternoon. She is ambulating and voiding without difficulty. She is tolerating a regular diet without nausea or vomiting. Her lochia is minimal. She states her pain is well-controlled. Patient reports: Reports appetite normal, Reports voiding normally, Reports pain well controlled, Reports ambulating normally [place]: doing well Objective - Vital Signs Latest vital signs: Vital Signs Temp Pulse Resp BP BP Pulse Ox 03/09/20 08:00 97.8 F 89 16 133/78 98 03/09/20 04:00 96.8 F L 92 14 132/80 98 03/09/20 00:00 96.4 F L 96 12 130/75 97 03/08/20 20:00 97.9 F 94 14 136/79 97 03/08/20 15:15 96.9 F L 93 16 119/61 96 03/08/20 14:45 101 H 16 107/57 03/08/20 14:15 102 H 16 117/55 03/08/20 14:00 101 H 16 121/60 03/08/20 13:45 96 16 132/70 03/08/20 13:30 96 16 139/71 03/08/20 13:15 98.3 F 102 H 16 124/67 95 Intake and Output 03/08/20 03/09/20 03/09/20 22:59 06:59 14:59 Output Total 1600 1000 1000 Balance -1600 -1000 -1000 Output: Urine 1600 1000 1000 Uretheral (Vasquez) 800 Other: # Voids 1 - Exam Extremities: Present: normal Abdomen: Present: normal appearance, soft Incision: Present: normal, dry, intact Uterus: Present: normal, firm - Labs Labs: Abnormal Lab Results - Last 24 Hours (Table) 03/08/20 03/09/20 Range/Units 11:00 07:43 WBC 16.4 H 14.7 H (3.8-10.6) k/uL Hgb 10.7 L (11.4-16.0) gm/dL Hct 33.1 L (34.0-46.0) % RDW 16.0 H 16.3 H (11.5-15.5) % Plt Count 144 L (150-450) k/uL Neutrophils # 13.2 H 11.7 H (1.3-7.7) k/uL Assessment and Plan (1) 37 weeks gestation of Current Visit: Yes Status: Acute Code(s): Z3A.37 - 37 WEEKS GESTATION OF SNOMED Code(s): 32314651 (2) Gestational HTN Current Visit: No Status: Acute Code(s): O13.9 - GESTATIONAL HTN W/O SIGNIFICANT PROTEINURIA, UNSP TRIMESTER SNOMED Code(s): 627074185 (3) H/O section Current Visit: No Status: Acute Code(s): Z98.891 - HISTORY OF UTERINE SCAR FROM PREVIOUS SURGERY SNOMED Code(s): 562287428 (4) S/P section Current Visit: Yes Status: Acute Code(s): Z98.891 - HISTORY OF UTERINE SCAR FROM PREVIOUS SURGERY SNOMED Code(s): 119088993 (5) S/P tubal ligation Current Visit: Yes Status: Acute Code(s): Z98.51 - TUBAL LIGATION STATUS SNOMED Code(s): 680318347 Plan: Patient continues to do well postoperatively, will plan to continue routine postoperative care and anticipate discharge home tomorrow.
[2020-03-10 01:14] VITALS: RESP 18
[2020-03-10] MEDS: IBUPROFEN 600 MG TAB PO PRN ×2 (03:23→10:19)
[2020-03-10] MEDS: SENNOSIDES-DOCUSATE SODIUM 1 EACH TAB PO SCH (07:47)
[2020-03-10] MEDS: LABETALOL 200 MG TAB PO SCH (08:10)
--- NOTE | 2020-03-10 08:37 | P.DS ---
Providers Date of admission: 03/08/20 09:43 Expected date of discharge: 03/10/20 Attending physician: Chela Bragg Primary care physician: Stated None - Discharge Diagnosis(es) (1) S/P section Current Visit: Yes Status: Acute Hospital Course: The patient is a 29-year-old 3 para 1023 admitted at 37 and one sevenths weeks for repeat section with tubal ligation. She is noted to have elevated blood pressures but has had negative workup for preeclampsia. As a result of her increasing hypertension and requirement of antihypertensive medications, she was taken the operating room at an earlier gestational age for repeat low transverse section which was carried out without difficulty. She was delivered of a viable 8 lbs. 3 oz. baby boy with Apgars of 9 at 1 minute and 9 at 5 minutes and an incompetent fashion. Her postoperative course has been unremarkable vital signs being stable and her temperature was afebrile throughout. She does continue to require labetalol for management of her postoperative elevated blood pressures as well. She was deemed stable for discharge on post operative day #2 was discharged home to follow-up in the office in 2 weeks for an incision check and 6 weeks routinely. Discharge instructions included calling for any significantly increased bleeding or foul- smelling lochia, significantly increased fever or abdominal pain, perineal complaints, breast complaints, incisional complaints, or anything else that concerned her. She is additionally instructed to do no heavy lifting over the same period of time and to abstain from anything in the vagina to include intercourse for at least 6 weeks. She was last instructed to do no driving until off of all pain medications or 2 weeks' time, whichever came first. She understood her instructions and agrees to follow up as noted above. Discharge medications included continued labetalol 100 mg twice daily for which she has a prescription. She will otherwise use [id number] analgesic pain medications. She was offered narcotics but declined. Maternal blood type is O+ and rubella status is immune. Procedures: #1. Repeat low transverse section #2. Intraoperative bilateral tubal occlusion with [place] clips Patient Condition at Discharge: Stable Plan - Discharge Summary New Discharge Prescriptions: No Action Pnv No.95/Ferrous Fum/Folic AC [ Multivitamin Tablet] 1 each PO DAILY Labetalol [Trandate] 200 mg PO BID Ferrous Sulfate [Iron] 1 tab PO DAILY Discharge Medication List Pnv No.95/Ferrous Fum/Folic AC [ Multivitamin Tablet] 1 each PO DAILY 02/01/20 [History] Ferrous Sulfate [Iron] 1 tab PO DAILY 02/14/20 [History] Labetalol [Trandate] 200 mg PO BID 02/14/20 [History] Follow up Appointment(s)/Referral(s): Chela Bragg DO [Doctor of Osteopathic Medicine] - 2 Weeks Discharge Disposition: HOME SELF-CARE
[2020-03-10 08:49] VITALS: BP 145/83; PULSE 98; TEMP 98
[2020-03-10] MEDS: PRENATAL VIT-IRON-FOLIC ACID 1 EACH CAP PO SCH (11:43)
== END 2020-03-10 10:30 | disposition home or self-care (01) | DRG 785 ==
LOC: 4FBP 09:43
PROVIDERS: ADMIT Obstetrics & Gynecology Obstetrics; ATTEND Obstetrics & Gynecology Obstetrics
PROC: 0UL70CZ Occlusion of Bilateral Fallopian Tubes with Extraluminal Device, Open Approach (ICD-10-PCS; 2020-03-08)
PROC: 10D00Z1 Extraction of Products of Conception, Low, Open Approach (ICD-10-PCS; principal; 2020-03-08 12:00)
DX: O12.14 Gestational proteinuria, complicating childbirth (principal); O34.211 Maternal care for low transverse scar from previous cesarean delivery; O99.214 Obesity complicating childbirth; L29.9 Pruritus, unspecified; O99.73 Diseases of the skin and subcutaneous tissue complicating the puerperium; Z37.0 Single live birth; Z3A.37 37 weeks gestation of pregnancy; Z30.2 Encounter for sterilization; Z87.01 Personal history of pneumonia (recurrent); Z79.899 Other long term (current) drug therapy; Z87.891 Personal history of nicotine dependence; Z82.49 Family history of ischemic heart disease and other diseases of the circulatory system; Z80.7 Family history of other malignant neoplasms of lymphoid, hematopoietic and related tissues; Z88.1 Allergy status to other antibiotic agents
CPT/HCPCS: 85025; 86850; 86900; 86901